=== PATIENT | male | born 1945 | race Two or more races ===

== ENCOUNTER 2017-11-20 17:01 | Inpatient (IN) | payer BC, MEDICARE ==
[~2017-11-20] VITALS: Ht 172.7 cm; Wt 90.3 kg
[2017-11-20] MEDS ORDERED: Sodium Chloride 500ML 500 ML IV ONE (17:15)
[2017-11-20 17:30] LABS: HEMATOCRIT 44.2 % (42.0-52.0); HEMOGLOBIN 14.8 G/DL (14.2-18.0); LYMPHOCYTES % (AUTO) 11.3 % (20.0-45.0); MEAN CORPUSCULAR VOLUME 91 FL (80-99); MONOCYTES % (AUTO) 10.9 % (1.0-10.0); NEUTROPHILS % (AUTO) 76.9 % (45.0-75.0); PLATELET COUNT 114 K/UL (150-450); RED BLOOD COUNT 4.87 M/UL (4.70-6.10); RED CELL DISTRIBUTION WIDTH 12.3 % (11.6-14.8); WHITE BLOOD COUNT 6.1 K/UL (4.8-10.8)
[2017-11-20] MEDS ORDERED: Tylenol #3 tab (300mg/30mg) ORAL ONE (17:30)
[2017-11-20 17:32] VITALS: BP 121/56
[2017-11-20 17:40] LABS: ANION GAP 10 mmol/L (5-15); BLOOD UREA NITROGEN 11 mg/dL (7-18); CALCIUM 8.4 MG/DL (8.5-10.1); CARBON DIOXIDE 24 MMOL/L (21-32); CHLORIDE 100 MMOL/L (98-107); POTASSIUM 4.1 MMOL/L (3.5-5.1); SODIUM 134 MMOL/L (136-145)
[2017-11-20 17:49] LABS: APPEARANCE,URINE SLIGHTLY CLOUDY; BILIRUBIN, URINE NEGATIVE (NEGATIVE); COLOR,URINE AMBER; GLUCOSE, URINE (UA) NEGATIVE (NEGATIVE); KETONES,URINE 3+ (NEGATIVE); LEUKOCYTE ESTERASE ,URINE 2+ (NEGATIVE); NITRITE,URINE NEGATIVE (NEGATIVE); PH,URINE 6.5 (4.5-8.0); PROTEIN,URINE 3+ (NEGATIVE); UROBILINOGEN,URINE 4 MG/DL (0.0-1.0)
[2017-11-20 17:54] LABS: ALANINE AMINOTRANSFERASE 43 U/L (12-78); ALBUMIN 3.3 G/DL (3.4-5.0); ALBUMIN/GLOBULIN RATIO 0.8 (1.0-2.7); ALKALINE PHOSPHATASE 124 U/L (46-116); ASPARTATE AMINO TRANSFERASE 46 U/L (15-37); BILIRUBIN,TOTAL 1.2 MG/DL (0.2-1.0); CREATINE KINASE 325 U/L (26-308)
[2017-11-20 17:55] LABS: BILIRUBIN,DIRECT 0.5 MG/DL (0.0-0.3)
--- NOTE | 2017-11-20 18:09 | Diagnostic Imaging Report ---
Indication: Chest pain Technique: One view of the chest Comparison: none Findings: There is bilateral interstitial edema. No definite effusions. No definite airspace consolidation. The heart is borderline enlarged. Impression: Bilateral interstitial edema
[2017-11-20 18:33] VITALS: BP 121/56
[2017-11-20] MEDS ORDERED: cefTRIAXone 1 GM in D5W 55 ML IVPB ONE (18:45)
[2017-11-20] MEDS ORDERED: Promethazine Plain 6.25mg/5ml ORAL ONE (19:00)
--- NOTE | 2017-11-20 19:08 | Diagnostic Imaging Report ---
EXAM: CT Head Without Intravenous Contrast CLINICAL HISTORY: AMS TECHNIQUE: Axial computed tomography images of the head/brain without intravenous contrast. One or more of the following dose reduction techniques were used: automated exposure control, adjustment of the mA and/or kV according to patient size, use of iterative reconstruction technique. CTDI 70.38 + 0.15. DLP 1312 COMPARISON: No comparison FINDINGS: Brain: No hemorrhage. No edema. Involutional changes with small vessel disease Ventricles: No ventriculomegaly. Bones/joints: No acute fracture. Soft tissues: Unremarkable. Sinuses: No acute sinusitis. Minimal sinus mucosal thickening - debris Mastoid air cells: No mastoid effusion. IMPRESSION: No acute findings. MRI is more sensitive if warranted.
[2017-11-20] MEDS ORDERED: GLIMEPIRIDE4 MG ORAL (19:19)
[2017-11-20] MEDS ORDERED: LANTUS SOL100 UNIT/1 SUBQ (19:19)
[2017-11-20 19:54] VITALS: BP 121/61
--- NOTE | 2017-11-20 20:04 | Emergency Room Report ---
History of Present Illness General Chief Complaint: Altered Level of Consciousness Source: Patient, Family Member, EMS Present Illness HPI Patient is brought in by paramedics with reports of being found confused Patient's family was looking for him over the past several hours Patient had apparently driven to an unknown location and was walking around with confusion Patient himself apparently started driving from [place] was found near this facility Patient himself is somewhat slow to respond to us however with family is more interactive There was no reports of vomiting or diarrhea Daughter reports that the patient had recent cystoscopy to follow-up for bladder cancer patient has had previous surgery and has been in remission Patient was also seen by his physician earlier today and was told of a temperature of 100 however no further intervention Allergies: Coded Allergies: No Known Allergies (Unverified , 11/20/17) Patient History Limited by: medical condition Past Medical History: see triage record Pertinent Family History: unable to obtain Reviewed Nursing Documentation: PMH: Agreed; PSxH: Agreed Nursing Documentation-PMH Hx Diabetes: Yes Hx Cancer: Yes - BLADDER Review of Systems All Other Systems: limited - Other than the ones mentioned in the history of present illness all others are reviewed however they do stay limited due to the patient's mental status Physical Exam Vital Signs Date Time Temp Pulse Resp B/P (MAP) Pulse Ox O2 Delivery O2 Flow Rate FiO2 11/20/17 16:56 102.5 101 22 142/62 97 Room Air 102.6 Sp02 EP Interpretation: reviewed, normal General Appearance: mild distress - Appears confused Head: normocephalic, atraumatic Eyes: bilateral eye PERRL ENT: normal pharynx, uvula midline, dry mucus membranes Neck: supple Respiratory: no respiratory distress, no retraction, crackles - Bilaterally Cardiovascular #1: regular rate, rhythm, no edema, no gallop Gastrointestinal: non tender, soft, no mass Musculoskeletal: other - Patient follows commands no obvious focal deficit Neurologic: responsive - Physically and verbally however does appear more sluggish Skin: normal color, no rash Lymphatic: no adenopathy Medical Decision Making Diagnostic Impression: Primary Impression: Sepsis Additional Impressions: UTI (urinary tract infection) CHF (congestive heart failure) ER Course Patient is a fairly complex patient with multiple differential to consideration including but not limited to cardiac cardiopulmonary , intracranial , infectious , neurological and vascular emergencies Patient CT head does not show any acute disease chest x-ray does show findings consistent with CHF Urine sample also shows too many white blood cells to count with significant UTI Which change in mental status and fever sepsis considered Patient has further hydration and antibiotics given the pulmonary congestion we did not want to provide too much IV fluids and therefore patient did not receive full 30 mL/kg Labs Test 11/20/17 17:01 11/20/17 17:45 White Blood Count 6.1 K/UL (4.8-10.8) Red Blood Count 4.87 M/UL (4.70-6.10) Hemoglobin 14.8 G/DL (14.2-18.0) Hematocrit 44.2 % (42.0-52.0) Mean Corpuscular Volume 91 FL (80-99) Mean Corpuscular Hemoglobin 30.3 PG (27.0-31.0) Mean Corpuscular Hemoglobin Concent 33.4 G/DL (32.0-36.0) Red Cell Distribution Width 12.3 % (11.6-14.8) Platelet Count 114 K/UL (150-450) Mean Platelet Volume 7.8 FL (6.5-10.1) Neutrophils (%) (Auto) 76.9 % (45.0-75.0) Lymphocytes (%) (Auto) 11.3 % (20.0-45.0) Monocytes (%) (Auto) 10.9 % (1.0-10.0) Eosinophils (%) (Auto) 0.0 % (0.0-3.0) Basophils (%) (Auto) 1.0 % (0.0-2.0) Sodium Level 134 MMOL/L (136-145) Potassium Level 4.1 MMOL/L (3.5-5.1) Chloride Level 100 MMOL/L (98-107) Carbon Dioxide Level 24 MMOL/L (21-32) Anion Gap 10 mmol/L (5-15) Blood Urea Nitrogen 11 mg/dL (7-18) Creatinine 1.0 MG/DL (0.55-1.30) Estimat Glomerular Filtration Rate mL/min (>60) Glucose Level 108 MG/DL (74-106) Lactic Acid Level 1.50 mmol/L (0.4-2.0) Calcium Level 8.4 MG/DL (8.5-10.1) Total Bilirubin 1.2 MG/DL (0.2-1.0) Direct Bilirubin 0.5 MG/DL (0.0-0.3) Aspartate Amino Transf (AST/SGOT) 46 U/L (15-37) Alanine Aminotransferase (ALT/SGPT) 43 U/L (12-78) Alkaline Phosphatase 124 U/L (46-116) Total Creatine Kinase 325 U/L (26-308) Creatine Kinase MB 1.0 NG/ML (0.0-3.6) Creatine Kinase MB Relative Index 0.3 Troponin I 0.000 ng/mL (0.000-0.056) Pro-B-Type Natriuretic Peptide 133 pg/mL (0-125) Total Protein 7.4 G/DL (6.4-8.2) Albumin 3.3 G/DL (3.4-5.0) Globulin 4.1 g/dL Albumin/Globulin Ratio 0.8 (1.0-2.7) Lipase 175 U/L (73-393) Urine Color Keila Urine Appearance Slightly cloudy Urine pH 6.5 (4.5-8.0) Urine Specific [place] 1.010 (1.005-1.035) Urine Protein 3+ (NEGATIVE) Urine Glucose (UA) Negative (NEGATIVE) Urine Ketones 3+ (NEGATIVE) Urine Occult Blood 4+ (NEGATIVE) Urine Nitrite Negative (NEGATIVE) Urine Bilirubin Negative (NEGATIVE) Urine Ictotest Negative Urine Urobilinogen 4 MG/DL (0.0-1.0) Urine Leukocyte Esterase 2+ (NEGATIVE) Urine RBC 10-15 /HPF (0 - 0) Urine WBC Tntc /HPF (0 - 0) Urine Squamous Epithelial Cells None /LPF (NONE/OCC) Urine Bacteria Few /HPF (NONE) EKG Diagnostic Results Rate: normal Rhythm: NSR ST Segments: no acute changes Rhythm Strip Diag. Results EP Interpretation: yes Rate: 77 Rhythm: NSR, no PVC's, no ectopy Chest X-Ray Diagnostic Results Chest X-Ray Diagnostic Results : Chest X-Ray Ordered: Yes # of Views/Limited/Complete: 1 View Indication: Chest Pain EP Interpretation: Yes Interpretation: no consolidation, no effusion, no pneumothorax, other - Borderline cardiomegaly, pulmonary congestion Impression: Other - Pulmonary congestion Electronically Signed by: Dudley Rodriguez, DO CT/MRI/US Diagnostic Results CT/MRI/US Diagnostic Results : Impression CT head no acute disease Last Vital Signs Date Time Temp Pulse Resp B/P (MAP) Pulse Ox O2 Delivery O2 Flow Rate FiO2 11/20/17 19:54 99.9 96 20 121/61 97 Room Air 99.9 Status: improved Disposition: ADMITTED INPATIENT Condition: Serious Referrals: NON PHYSICIAN (PCP) Dudley Rodriguez DO Nov 20, 2017 20:04
[2017-11-20] MEDS ORDERED: Miralax 17gm pkt ORAL PRN (20:15)
[2017-11-20] MEDS ORDERED: Albuterol/Ipratropium 3ml neb HHN PRN (20:15)
[2017-11-20] MEDS ORDERED: Morphine Sulfate 4mg/ml Inj IVP PRN (20:15)
[2017-11-20] MEDS ORDERED: LORazepam Inj 2mg/ml 1ml IV PRN (20:15)
[2017-11-20 20:30] VITALS: BP 137/70
[2017-11-20] MEDS: Heparin 5000 units/ml inj SUBQ SCH (21:00)
[2017-11-20] MEDS: NovoLOG Insulin Flexpen SUBQ SCH (21:00)
[2017-11-20] MEDS: Promethazine/Codeine 5ml UD ORAL PRN (21:08)
[2017-11-20] MEDS: Cefepime HCl 2 GM in D5W 110 ML IV SCH (22:19)
[2017-11-20] MEDS: Vancomycin 1 GM in D5W 275 ML IVPB SCH (23:26)
[2017-11-21] VITALS: BP 129/79
[2017-11-21 04:00] VITALS: BP 133/63
[2017-11-21] MEDS: Promethazine/Codeine 5ml UD ORAL PRN ×2 (05:59→19:42)
[2017-11-21] MEDS: NovoLOG Insulin Flexpen SUBQ SCH ×4 (06:05→21:00)
[2017-11-21 07:09] LABS: BASOPHILS % (AUTO) 1.3 % (0.0-2.0); EOSINOPHILS % (AUTO) 0.2 % (0.0-3.0); HEMATOCRIT 44.3 % (42.0-52.0); HEMOGLOBIN 14.9 G/DL (14.2-18.0); LYMPHOCYTES % (AUTO) 24.8 % (20.0-45.0); MEAN CORPUSCULAR VOLUME 90 FL (80-99); MONOCYTES % (AUTO) 16.7 % (1.0-10.0); PLATELET COUNT 117 K/UL (150-450); RED BLOOD COUNT 4.91 M/UL (4.70-6.10); RED CELL DISTRIBUTION WIDTH 12.1 % (11.6-14.8); WHITE BLOOD COUNT 5.3 K/UL (4.8-10.8)
[2017-11-21 07:29] LABS: ANION GAP 8 mmol/L (5-15); BLOOD UREA NITROGEN 14 mg/dL (7-18); CALCIUM 8.5 MG/DL (8.5-10.1); CARBON DIOXIDE 26 MMOL/L (21-32); CHLORIDE 99 MMOL/L (98-107); CREATININE 1.1 MG/DL (0.55-1.30); PHOSPHORUS 3.3 MG/DL (2.5-4.9); POTASSIUM 3.6 MMOL/L (3.5-5.1); SODIUM 133 MMOL/L (136-145)
[2017-11-21 08:00] VITALS: BP 129/72
[2017-11-21] MEDS: Cefepime HCl 2 GM in D5W 110 ML IV SCH (09:23)
[2017-11-21] MEDS: Heparin 5000 units/ml inj SUBQ SCH ×2 (09:34→21:00)
[2017-11-21] MEDS ORDERED: Tubing IV Secondary IV ONE (11:23)
[2017-11-21 12:00] VITALS: BP 103/52
[2017-11-21] MEDS: Vancomycin 1 GM in D5W 275 ML IVPB SCH (12:55)
--- NOTE | 2017-11-21 13:07 | Consultation ---
History of Present Illness General Date patient seen: Nov 21, 2017 Chief Complaint: Altered Level of Consciousness Present Illness HPI 72 year old male with hx of bladder cancer, DM, COPD, chronic cough, CHF was brought in by paramedics with reports of being found confused over the past several hours. Pt was somewhat slow to respond initially. Daughter reports that the patient had recent cystoscopy to follow-up for bladder cancer patient has had previous surgery and has been in remission. Pt had a Temp of 102 in the ER and admitted to telemetry for acute sepsis. Pt is more awake and oriented on my evaluation. Allergies: Coded Allergies: No Known Allergies (Unverified , 11/20/17) Medication History Scheduled Glimepiride* (Glimepiride*), 4 MG ORAL BEFORE BREAKFAST, (Reported) Insulin Glargine (Lantus), 0 SUBQ BEDTIME, (Reported) Patient History Healthcare decision maker Resuscitation status Full Code Advanced Directive on File Past Medical/Surgical History Past Medical/Surgical History: (1) Bladder cancer (2) Diabetes mellitus type II, uncontrolled (3) CHF (congestive heart failure) Review of Systems All Other Systems: negative except mentioned in HPI Physical Exam General Appearance: WD/WN Lines, tubes and drains: peripheral HEENT: normocephalic, atraumatic Neck: non-tender, normal alignment Respiratory/Chest: chest wall non-tender, lungs clear, normal breath sounds Abdomen: normal bowel sounds, non tender Last 24 Hour Vital Signs Date Time Temp Pulse Resp B/P (MAP) Pulse Ox O2 Delivery O2 Flow Rate FiO2 11/21/17 08:19 93 Room Air 11/21/17 08:00 99.6 79 18 129/72 98 Room Air 99.6 11/21/17 04:00 73 11/21/17 04:00 100.1 74 22 133/63 97 Room Air 100.1 11/21/17 00:00 99.4 87 24 129/79 95 Room Air 99.4 11/21/17 00:00 91 11/20/17 20:30 99.8 79 22 137/70 93 Room Air 99.8 11/20/17 20:20 99.9 96 20 121/61 97 Room Air 99.9 11/20/17 20:15 77 11/20/17 19:54 99.9 96 20 121/61 97 Room Air 99.9 11/20/17 19:00 94 Room Air 11/20/17 18:49 94 Nasal Cannula 2.0 11/20/17 18:33 100.2 89 22 121/56 97 Room Air 100.2 11/20/17 18:25 100.2 11/20/17 17:32 102.5 99 22 121/56 97 Room Air 102.5 11/20/17 17:25 102.5 11/20/17 16:56 102.5 101 22 142/62 97 Room Air 102.6 Intake and Output 11/20/17 11/21/17 19:00 07:00 Intake Total 60 ml 577 ml Balance 60 ml 577 ml Intake Oral 60 ml 240 ml IV Total 337 ml # Voids 1 Laboratory Tests Test 11/20/17 17:01 11/20/17 17:45 11/21/17 06:40 White Blood Count 6.1 K/UL (4.8-10.8) 5.3 K/UL (4.8-10.8) Red Blood Count 4.87 M/UL (4.70-6.10) 4.91 M/UL (4.70-6.10) Hemoglobin 14.8 G/DL (14.2-18.0) 14.9 G/DL (14.2-18.0) Hematocrit 44.2 % (42.0-52.0) 44.3 % (42.0-52.0) Mean Corpuscular Volume 91 FL (80-99) 90 FL (80-99) Mean Corpuscular Hemoglobin 30.3 PG (27.0-31.0) 30.4 PG (27.0-31.0) Mean Corpuscular Hemoglobin Concent 33.4 G/DL (32.0-36.0) 33.7 G/DL (32.0-36.0) Red Cell Distribution Width 12.3 % (11.6-14.8) 12.1 % (11.6-14.8) Platelet Count 114 K/UL (150-450) L 117 K/UL (150-450) L Mean Platelet Volume 7.8 FL (6.5-10.1) 8.2 FL (6.5-10.1) Neutrophils (%) (Auto) 76.9 % (45.0-75.0) H 57.0 % (45.0-75.0) Lymphocytes (%) (Auto) 11.3 % (20.0-45.0) L 24.8 % (20.0-45.0) Monocytes (%) (Auto) 10.9 % (1.0-10.0) H 16.7 % (1.0-10.0) H Eosinophils (%) (Auto) 0.0 % (0.0-3.0) 0.2 % (0.0-3.0) Basophils (%) (Auto) 1.0 % (0.0-2.0) 1.3 % (0.0-2.0) Sodium Level 134 MMOL/L (136-145) L 133 MMOL/L (136-145) L Potassium Level 4.1 MMOL/L (3.5-5.1) 3.6 MMOL/L (3.5-5.1) Chloride Level 100 MMOL/L (98-107) 99 MMOL/L (98-107) Carbon Dioxide Level 24 MMOL/L (21-32) 26 MMOL/L (21-32) Anion Gap 10 mmol/L (5-15) 8 mmol/L (5-15) Blood Urea Nitrogen 11 mg/dL (7-18) 14 mg/dL (7-18) Creatinine 1.0 MG/DL (0.55-1.30) 1.1 MG/DL (0.55-1.30) Estimat Glomerular Filtration Rate mL/min (>60) mL/min (>60) Glucose Level 108 MG/DL (74-106) H 91 MG/DL (74-106) Lactic Acid Level 1.50 mmol/L (0.4-2.0) Calcium Level 8.4 MG/DL (8.5-10.1) L 8.5 MG/DL (8.5-10.1) Total Bilirubin 1.2 MG/DL (0.2-1.0) H Direct Bilirubin 0.5 MG/DL (0.0-0.3) H Aspartate Amino Transf (AST/SGOT) 46 U/L (15-37) H Alanine Aminotransferase (ALT/SGPT) 43 U/L (12-78) Alkaline Phosphatase 124 U/L (46-116) H Total Creatine Kinase 325 U/L (26-308) H Creatine Kinase MB 1.0 NG/ML (0.0-3.6) Creatine Kinase MB Relative Index 0.3 Troponin I 0.000 ng/mL (0.000-0.056) Pro-B-Type Natriuretic Peptide 133 pg/mL (0-125) H Total Protein 7.4 G/DL (6.4-8.2) Albumin 3.3 G/DL (3.4-5.0) L 3.0 G/DL (3.4-5.0) L Globulin 4.1 g/dL Albumin/Globulin Ratio 0.8 (1.0-2.7) L Lipase 175 U/L (73-393) Urine Color Keila Urine Appearance Slightly cloudy Urine pH 6.5 (4.5-8.0) Urine Specific [place] 1.010 (1.005-1.035) Urine Protein 3+ (NEGATIVE) H Urine Glucose (UA) Negative (NEGATIVE) Urine Ketones 3+ (NEGATIVE) H Urine Occult Blood 4+ (NEGATIVE) H Urine Nitrite Negative (NEGATIVE) Urine Bilirubin Negative (NEGATIVE) Urine Ictotest Negative Urine Urobilinogen 4 MG/DL (0.0-1.0) H Urine Leukocyte Esterase 2+ (NEGATIVE) H Urine RBC 10-15 /HPF (0 - 0) H Urine WBC Tntc /HPF (0 - 0) H Urine Squamous Epithelial Cells None /LPF (NONE/OCC) Urine Bacteria Few /HPF (NONE) Phosphorus Level 3.3 MG/DL (2.5-4.9) Microbiology Date/Time Source Procedure Growth Status 11/20/17 17:45 Urine,Clean Catch Urine Culture - Preliminary Resulted Height (Feet): 5 Height (Inches): 8.00 Weight (Pounds): 199 Medications Current Medications Medications (Trade) Dose Ordered Sig/Leslie Route PRN Reason Start Time Stop Time Status Last Admin Dose Admin Acetaminophen (Tylenol) 650 mg Q4H PRN ORAL FEVER (temp>100.5F) 11/20/17 20:15 12/20/17 20:14 Albuterol/ Ipratropium (Albuterol/ Ipratropium) 3 ml Q4H PRN HHN Shortness of Breath 11/20/17 20:15 11/25/17 20:14 Cefepime HCl 2 gm/ Dextrose 110 ml @ 220 mls/hr EVERY 12 HOURS IV 11/20/17 22:00 11/27/17 21:59 11/21/17 09:23 Dextrose (Dextrose 50%) 25 ml STAT PRN IV Hypoglycemia 11/20/17 20:15 12/20/17 20:14 Dextrose (Dextrose 50%) 50 ml STAT PRN IV Hypoglycemia 11/20/17 20:15 12/20/17 20:14 Heparin Sodium (Porcine) (Heparin 5000 units/ml) 5,000 units EVERY 12 HOURS SUBQ 11/20/17 21:00 12/20/17 20:59 11/21/17 09:34 Insulin Aspart (NovoLOG) BEFORE MEALS AND HS SUBQ 11/20/17 21:00 12/20/17 20:59 Lorazepam (Ativan 2mg/ml 1ml) 2 mg Q2H PRN IV For Anxiety 11/20/17 20:15 11/27/17 20:14 Morphine Sulfate (Morphine Sulfate) 4 mg Q4H PRN IVP Severe Pain (Pain Scale 7-10) 11/20/17 20:15 11/27/17 20:14 Ondansetron HCl (Zofran) 4 mg Q6H PRN IVP Nausea & Vomiting 11/20/17 20:15 12/20/17 20:14 Polyethylene Glycol (Miralax) 17 gm DAILYPRN PRN ORAL Constipation 11/20/17 20:15 12/20/17 20:14 Promethazine HCl/ Codeine (Phenergan with Codeine) 5 ml Q4H PRN ORAL For Cough 11/20/17 20:15 12/20/17 20:14 11/21/17 05:59 Sodium Chloride 1,000 ml @ 50 mls/hr Q20H IV 11/20/17 20:30 12/20/17 20:29 11/20/17 21:14 Vancomycin HCl (Vanco rx to dose) 1 ea DAILY PRN MISC per RX protocol 11/20/17 20:30 12/20/17 20:29 Vancomycin HCl 1 gm/Dextrose 275 ml @ 183.3 mls/ hr Q12HR@1100,2300 IVPB 11/20/17 23:00 11/25/17 22:59 11/21/17 12:55 Assessment/Plan Problem List: (1) Sepsis ICD Codes: A41.9 - Sepsis, unspecified organism SNOMED: 21138973 (2) Altered mental status ICD Codes: R41.82 - Altered mental status, unspecified SNOMED: 303352443 (3) Bronchitis ICD Codes: J40 - Bronchitis, not specified as acute or chronic SNOMED: 22784342 (4) Bladder cancer ICD Codes: C67.9 - Malignant neoplasm of bladder, unspecified SNOMED: 187085575 (5) Diabetes mellitus type II, uncontrolled ICD Codes: E11.65 - Type 2 diabetes mellitus with hyperglycemia SNOMED: 21033699, 257352411 Assessment/Plan iv abx respiratory treatment antitussives check sputum and other cultures sliding scale, diabetic diet dvt prophylaxis Sabine Mendez MD Nov 21, 2017 13:07
--- NOTE | 2017-11-21 13:55 | Consultation ---
History of Present Illness General Date patient seen: Nov 21, 2017 Time patient seen: 12:58 Chief Complaint: Altered Level of Consciousness Reason for Consultation: CHF Present Illness HPI Patient came in with fever and confusion. CXR with bilateral interstitial edema. CT brain negative. Troponin normal, UA with positive LE/nitrites concerning for urosepsis. Hx of CHF. Allergies: Coded Allergies: No Known Allergies (Unverified , 11/20/17) Medication History Scheduled Glimepiride* (Glimepiride*), 4 MG ORAL BEFORE BREAKFAST, (Reported) Insulin Glargine (Lantus), 0 SUBQ BEDTIME, (Reported) Patient History Healthcare decision maker Resuscitation status Full Code Advanced Directive on File Review of Systems Constitutional: Reports: fever Eye: Reports: no symptoms ENT: Reports: no symptoms Respiratory: Reports: cough Cardiovascular: Reports: no symptoms Gastrointestinal: Reports: no symptoms Genitourinary: Reports: no symptoms Musculoskeletal: Reports: no symptoms Skin: Reports: no symptoms Neurological: Reports: focal weakness Endocrine: Reports: no symptoms Hematologic/Lymphatic: Reports: no symptoms Physical Exam General Appearance: no apparent distress Lines, tubes and drains: peripheral HEENT: normocephalic Neck: non-tender Respiratory/Chest: chest wall non-tender Cardiovascular/Chest: normal peripheral pulses Abdomen: non tender Extremities: normal range of motion Neurologic: no motor/sensory deficits Last 24 Hour Vital Signs Date Time Temp Pulse Resp B/P (MAP) Pulse Ox O2 Delivery O2 Flow Rate FiO2 11/21/17 12:00 65 11/21/17 08:19 93 Room Air 11/21/17 08:00 86 11/21/17 08:00 99.6 79 18 129/72 98 Room Air 99.6 11/21/17 04:00 73 11/21/17 04:00 100.1 74 22 133/63 97 Room Air 100.1 11/21/17 00:00 99.4 87 24 129/79 95 Room Air 99.4 11/21/17 00:00 91 11/20/17 20:30 99.8 79 22 137/70 93 Room Air 99.8 11/20/17 20:20 99.9 96 20 121/61 97 Room Air 99.9 11/20/17 20:15 77 11/20/17 19:54 99.9 96 20 121/61 97 Room Air 99.9 6/22/18 19:00 94 Room Air 11/20/17 18:49 94 Nasal Cannula 2.0 11/20/17 18:33 100.2 89 22 121/56 97 Room Air 100.2 11/20/17 18:25 100.2 11/20/17 17:32 102.5 99 22 121/56 97 Room Air 102.5 11/20/17 17:25 102.5 11/20/17 16:56 102.5 101 22 142/62 97 Room Air 102.6 Intake and Output 11/20/17 11/21/17 19:00 07:00 Intake Total 60 ml 577 ml Balance 60 ml 577 ml Intake Oral 60 ml 240 ml IV Total 337 ml # Voids 1 Laboratory Tests Test 11/20/17 17:01 11/20/17 17:45 11/21/17 06:40 White Blood Count 6.1 K/UL (4.8-10.8) 5.3 K/UL (4.8-10.8) Red Blood Count 4.87 M/UL (4.70-6.10) 4.91 M/UL (4.70-6.10) Hemoglobin 14.8 G/DL (14.2-18.0) 14.9 G/DL (14.2-18.0) Hematocrit 44.2 % (42.0-52.0) 44.3 % (42.0-52.0) Mean Corpuscular Volume 91 FL (80-99) 90 FL (80-99) Mean Corpuscular Hemoglobin 30.3 PG (27.0-31.0) 30.4 PG (27.0-31.0) Mean Corpuscular Hemoglobin Concent 33.4 G/DL (32.0-36.0) 33.7 G/DL (32.0-36.0) Red Cell Distribution Width 12.3 % (11.6-14.8) 12.1 % (11.6-14.8) Platelet Count 114 K/UL (150-450) L 117 K/UL (150-450) L Mean Platelet Volume 7.8 FL (6.5-10.1) 8.2 FL (6.5-10.1) Neutrophils (%) (Auto) 76.9 % (45.0-75.0) H 57.0 % (45.0-75.0) Lymphocytes (%) (Auto) 11.3 % (20.0-45.0) L 24.8 % (20.0-45.0) Monocytes (%) (Auto) 10.9 % (1.0-10.0) H 16.7 % (1.0-10.0) H Eosinophils (%) (Auto) 0.0 % (0.0-3.0) 0.2 % (0.0-3.0) Basophils (%) (Auto) 1.0 % (0.0-2.0) 1.3 % (0.0-2.0) Sodium Level 134 MMOL/L (136-145) L 133 MMOL/L (136-145) L Potassium Level 4.1 MMOL/L (3.5-5.1) 3.6 MMOL/L (3.5-5.1) Chloride Level 100 MMOL/L (98-107) 99 MMOL/L (98-107) Carbon Dioxide Level 24 MMOL/L (21-32) 26 MMOL/L (21-32) Anion Gap 10 mmol/L (5-15) 8 mmol/L (5-15) Blood Urea Nitrogen 11 mg/dL (7-18) 14 mg/dL (7-18) Creatinine 1.0 MG/DL (0.55-1.30) 1.1 MG/DL (0.55-1.30) Estimat Glomerular Filtration Rate mL/min (>60) mL/min (>60) Glucose Level 108 MG/DL (74-106) H 91 MG/DL (74-106) Lactic Acid Level 1.50 mmol/L (0.4-2.0) Calcium Level 8.4 MG/DL (8.5-10.1) L 8.5 MG/DL (8.5-10.1) Total Bilirubin 1.2 MG/DL (0.2-1.0) H Direct Bilirubin 0.5 MG/DL (0.0-0.3) H Aspartate Amino Transf (AST/SGOT) 46 U/L (15-37) H Alanine Aminotransferase (ALT/SGPT) 43 U/L (12-78) Alkaline Phosphatase 124 U/L (46-116) H Total Creatine Kinase 325 U/L (26-308) H Creatine Kinase MB 1.0 NG/ML (0.0-3.6) Creatine Kinase MB Relative Index 0.3 Troponin I 0.000 ng/mL (0.000-0.056) Pro-B-Type Natriuretic Peptide 133 pg/mL (0-125) H Total Protein 7.4 G/DL (6.4-8.2) Albumin 3.3 G/DL (3.4-5.0) L 3.0 G/DL (3.4-5.0) L Globulin 4.1 g/dL Albumin/Globulin Ratio 0.8 (1.0-2.7) L Lipase 175 U/L (73-393) Urine Color [place]ila Urine Appearance Slightly cloudy Urine pH 6.5 (4.5-8.0) Urine Specific [place] 1.010 (1.005-1.035) Urine Protein 3+ (NEGATIVE) H Urine Glucose (UA) Negative (NEGATIVE) Urine Ketones 3+ (NEGATIVE) H Urine Occult Blood 4+ (NEGATIVE) H Urine Nitrite Negative (NEGATIVE) Urine Bilirubin Negative (NEGATIVE) Urine Ictotest Negative Urine Urobilinogen 4 MG/DL (0.0-1.0) H Urine Leukocyte Esterase 2+ (NEGATIVE) H Urine RBC 10-15 /HPF (0 - 0) H Urine WBC Tntc /HPF (0 - 0) H Urine Squamous Epithelial Cells None /LPF (NONE/OCC) Urine Bacteria Few /HPF (NONE) Phosphorus Level 3.3 MG/DL (2.5-4.9) Microbiology Date/Time Source Procedure Growth Status 11/20/17 17:45 Urine,Clean Catch Urine Culture - Preliminary Resulted Height (Feet): 5 Height (Inches): 8.00 Weight (Pounds): 199 Medications Current Medications Medications (Trade) Dose Ordered Sig/Leslie Route PRN Reason Start Time Stop Time Status Last Admin Dose Admin Acetaminophen (Tylenol) 650 mg Q4H PRN ORAL FEVER (temp>100.5F) 11/20/17 20:15 12/20/17 20:14 Albuterol/ Ipratropium (Albuterol/ Ipratropium) 3 ml Q4H PRN HHN Shortness of Breath 11/20/17 20:15 11/25/17 20:14 Cefepime HCl 2 gm/ Dextrose 110 ml @ 220 mls/hr EVERY 12 HOURS IV 11/20/17 22:00 11/27/17 21:59 11/21/17 09:23 Dextrose (Dextrose 50%) 25 ml STAT PRN IV Hypoglycemia 11/20/17 20:15 12/20/17 20:14 Dextrose (Dextrose 50%) 50 ml STAT PRN IV Hypoglycemia 11/20/17 20:15 12/20/17 20:14 Heparin Sodium (Porcine) (Heparin 5000 units/ml) 5,000 units EVERY 12 HOURS SUBQ 11/20/17 21:00 12/20/17 20:59 11/21/17 09:34 Insulin Aspart (NovoLOG) BEFORE MEALS AND HS SUBQ 11/20/17 21:00 12/20/17 20:59 Lorazepam (Ativan 2mg/ml 1ml) 2 mg Q2H PRN IV For Anxiety 11/20/17 20:15 11/27/17 20:14 Morphine Sulfate (Morphine Sulfate) 4 mg Q4H PRN IVP Severe Pain (Pain Scale 7-10) 11/20/17 20:15 11/27/17 20:14 Ondansetron HCl (Zofran) 4 mg Q6H PRN IVP Nausea & Vomiting 11/20/17 20:15 12/20/17 20:14 Polyethylene Glycol (Miralax) 17 gm DAILYPRN PRN ORAL Constipation 11/20/17 20:15 12/20/17 20:14 Promethazine HCl/ Codeine (Phenergan with Codeine) 5 ml Q4H PRN ORAL For Cough 11/20/17 20:15 12/20/17 20:14 11/21/17 05:59 Sodium Chloride 1,000 ml @ 50 mls/hr Q20H IV 11/20/17 20:30 12/20/17 20:29 11/20/17 21:14 Vancomycin HCl (Vanco rx to dose) 1 ea DAILY PRN MISC per RX protocol 11/20/17 20:30 12/20/17 20:29 Vancomycin HCl 1 gm/Dextrose 275 ml @ 183.3 mls/ hr Q12HR@1100,2300 IVPB 11/20/17 23:00 11/25/17 22:59 11/21/17 12:55 Assessment/Plan Status: stable Assessment/Plan IV abx for urosepsis CXR noted, no signs of distress of heart failure Troponin negative Check 2D echo to evaluate LV function Roger Westbrook M.D. Nov 21, 2017 13:55
--- NOTE | 2017-11-21 14:54 | Consultation ---
Consult Note Consult Note # [id number] Sin Farias MD Nov 21, 2017 14:54
[2017-11-21 16:00] VITALS: BP 123/65
--- NOTE | 2017-11-21 16:51 | History & Physical ---
History and Physical History & Physicial Dictated for Int Med-Dr Sandoval no. [id number]. Kana Cisse MD Nov 21, 2017 16:51
--- NOTE | 2017-11-21 17:45 | Consultation ---
DATE OF CONSULTATION: 11/21/2017 INFECTIOUS DISEASES CONSULTATION REQUESTING PHYSICIAN: 1. Arnulfo Sandoval M.D. 2. Sabine Mendez M.D. REASON FOR CONSULTATION: Evaluation of the patient for fever, sepsis, and antibiotic management. HISTORY OF PRESENT ILLNESS: The patient is a 72-year-old male with multiple medical problems as listed below who was brought to the hospital for confusion. Apparently, the patient on the street called the girlfriend and the patient could not locate his car. He does not remember why he was being outside. Family called 911. The patient was brought to the emergency room. The patient was found to have low-grade fever. After the patient was found to be febrile, Infectious Diseases consultation has been requested for further evaluation of the patient's antibiotic management. The patient's mental status has improved. PAST MEDICAL HISTORY: 1. History of bladder cancer, status post surgery x3, first time 10 years ago and the patient has also surgery? cystoscopy in June and July 2017. 2. History of diabetes. 3. History of right knee replacement. MEDICATIONS: Vancomycin and cefepime. ALLERGIES: No known drug allergies. SOCIAL HISTORY: The patient is a smoker. FAMILY HISTORY: Noncontributing. REVIEW OF SYSTEMS: HEENT: No recent change in vision or hearing. No headaches. PULMONARY: The patient has cough that has improved recently. CARDIOVASCULAR: No chest pain. GASTROINTESTINAL/ABDOMEN: No nausea or vomiting. No abdominal pain. GENITOURINARY: No dysuria. MUSCULOSKELETAL: No pain in extremity. NEUROLOGIC: As mentioned above. PHYSICAL EXAMINATION: VITAL SIGNS: Temperature 99.6 degrees, pulse 86, respiratory rate 18, and blood pressure 110/72. HEENT: No pale conjunctivae. No icterus. NECK: No lymphadenopathy. CHEST: Clear. HEART: S1 and S2. ABDOMEN: Soft and nontender. EXTREMITIES: No cyanosis at this time. NEUROLOGIC: Awake and alert. LABORATORY AND DIAGNOSTIC DATA: White blood cells 5.3, hemoglobin 14, platelets 117,000. UA shows too numerous to count white blood cells. UA showed 10 to 15 red blood cells. BUN and creatinine normal. AST 46, ALT 43, and alkaline phosphatase 124. Lipase normal. Lactic acid normal. Urine culture pending. Blood culture pending. Head CT, no acute changes. Chest x-ray, bilateral interstitial edema. ASSESSMENT: The patient is a 72-year-old male with: 1. Status post altered level of consciousness/confusion that improved overnight. 2. No evidence of meningitis/encephalitis. 3. Probably chronic obstructive pulmonary disease exacerbation versus community-acquired pneumonia. The patient's cough has increased recently in the last few days. 4. Pyuria. No urinary tract symptoms, however, need to rule out urinary tract infection. 5. Normal lactic acid. 6. Normal white blood cells. 7. Fever, improving. 8. Rule out bacteremia. PLAN: 1. We will change antibiotics to Levaquin for possible urinary tract infection and pneumonia. 2. Hold cefepime and vancomycin. 3. Monitor CBC. 4. Monitor BMP. 5. Monitor cultures (blood, urine). 6. We will send sputum culture. 7. Monitor vital signs. 8. Monitor chest x-ray. 9. Based on the patient's clinical course and labs, we will do further recommendations. Thank you, Dr. Sandoval and Dr. Mendez for allowing me to participate in the care of this patient. I will follow the patient with you during this hospitalization. Hannah Walker JOB#: [id number] CC:
--- NOTE | 2017-11-21 18:30 | History and Physical Report ---
DATE OF ADMISSION: 11/20/2017 CHIEF COMPLAINT: The patient is a 72-year-old white male, who is admitted with a chief complaint of altered mental status. HISTORY OF PRESENT ILLNESS: The patient has a history of bladder cancer. The patient is status post resection three times. The most recent was in July of 2017. According to the patient's family, the patient was missing last evening, 11/20/2017. The patient apparently got lost trying to drive back to [place]. The patient was able to call 911 and give the directions from the street signs. The patient presented to [facility] emergency room. The patient was somewhat confused. The patient was admitted for altered mental status to rule out recurrence of cancer versus urinary tract infection. PAST MEDICAL HISTORY: Significant for, 1. Type 2 diabetes. 2. Bladder cancer, which was diagnosed in 2009. PAST SURGICAL HISTORY: Significant for, 1. Bladder cancer resection, #1 in 2009, #2 in June of 2017, and #3 in July of 2017. 2. Right knee replacement. CURRENT MEDICATIONS: 1. Glimepiride 4 mg p.o. daily. 2. Tresiba 25 units subcutaneously every morning. ALLERGIES: No known drug allergies. SOCIAL HISTORY: The patient is and lives with his adult daughter. The patient admits to tobacco use of one-half pack per day. The patient admits to alcohol use occasionally. The patient denies drug abuse. REVIEW OF SYSTEMS: CONSTITUTIONAL: The patient denies weight loss or gain. The patient denies fevers or chills. HEENT: The patient denies ear or throat pain. The patient denies headache. CARDIOVASCULAR: The patient denies palpitations or chest pain. CHEST: The patient denies wheeze or shortness of breath. ABDOMINAL: The patient denies nausea, vomiting, diarrhea, or constipation. GENITOURINARY: The patient denies dysuria or increased frequency of urination. NEUROMUSCULAR: The patient denies seizures or generalized weakness. PHYSICAL EXAMINATION: VITAL SIGNS: Temperature 99.8, respirations 22, pulse 79, and blood pressure 137/70. GENERAL: The patient is a well-developed and well-nourished white male, in no apparent distress. HEENT: Eyes, pupils equal and responsive to light and accommodation. Extraocular movements are intact. NECK: Supple without lymphadenopathy. CHEST: Lungs are clear to auscultation bilaterally without wheezes or rales. CARDIOVASCULAR: Regular rhythm and rate. S1 and S2 are normal without murmurs, rubs, or gallops. ABDOMEN: Soft, nontender, and nondistended. Positive bowel sounds. No evidence of hepatosplenomegaly. Currently, no rebound or guarding noted. EXTREMITIES: Negative for clubbing, cyanosis, or edema. RECTAL/GENITAL: Refused. NEUROLOGIC: Cranial nerves II through XII are grossly intact without focal deficits. Motor strength is 5/5 bilaterally. Deep tendon reflexes are 2+ plantar. LABORATORY STUDIES: WBC 6.1, hemoglobin 14.8, hematocrit 44.2, and platelets 140,000. Sodium 134, potassium 4.1, chloride 100, CO2 24, BUN 11, creatinine 1.0, and glucose 108. Urinalysis showed 3+ protein, 3+ ketones, 4+ occult blood, and 2+ leukocyte esterase with 10 to 15 rbc's, and wbc's too numerous to count. ASSESSMENT: This is a 72-year-old white male. 1. Altered mental status. 2. Urinary tract infection. 3. Diabetes type 2. 4. History of bladder cancer. TREATMENT: 1. Urinary tract infection. The patient has been started empirically on intravenous vancomycin and Levaquin. The patient received cefepime and ceftriaxone in the emergency room. Await urine cultures. 2. Diabetes type 2. The patient has been placed on a NovoLog sliding scale. 3. History of bladder cancer. Urology consultation has been obtained with Dr. Lockett. Kana Cisse M.D. DR: MARCIA JOB#: [id number] CC:
[2017-11-21 20:00] VITALS: BP 125/65
[2017-11-22] VITALS: BP 122/73
[2017-11-22 04:00] VITALS: BP 119/70
[2017-11-22] MEDS: NovoLOG Insulin Flexpen SUBQ SCH ×4 (06:35→21:29)
[2017-11-22 08:00] VITALS: BP 126/63
--- NOTE | 2017-11-22 09:02 | Diagnostic Imaging Report ---
EXAM: XR Chest, 1 View CLINICAL HISTORY: DYSPNEA TECHNIQUE: Frontal view of the chest. COMPARISON: Chest x-ray dated 11/20/17. FINDINGS: Lungs: Increased interstitial markings. The lungs are otherwise clear without focal consolidation. Pleural space: Unremarkable. No pneumothorax. Heart: Unremarkable. No cardiomegaly. Mediastinum: Unremarkable. Bones/joints: Unremarkable. IMPRESSION: Increased interstitial markings. This may be related to mild pulmonary vascular congestion, interstitial edema, or interstitial pneumonitis. This appears mildly improved compared to the prior chest x-ray.
[2017-11-22] MEDS: Heparin 5000 units/ml inj SUBQ SCH ×2 (09:06→21:00)
[2017-11-22 10:08] LABS: HEMATOCRIT 45.4 % (42.0-52.0); HEMOGLOBIN 15.1 G/DL (14.2-18.0); MEAN CORPUSCULAR VOLUME 90 FL (80-99); PLATELET COUNT 99 K/UL (150-450); RED BLOOD COUNT 5.04 M/UL (4.70-6.10)
[2017-11-22 10:36] LABS: ALANINE AMINOTRANSFERASE 37 U/L (12-78); ALBUMIN 2.7 G/DL (3.4-5.0); ALBUMIN/GLOBULIN RATIO 0.7 (1.0-2.7); ALKALINE PHOSPHATASE 101 U/L (46-116); ANION GAP 4 mmol/L (5-15); ASPARTATE AMINO TRANSFERASE 38 U/L (15-37); BILIRUBIN,TOTAL 0.6 MG/DL (0.2-1.0); BLOOD UREA NITROGEN 17 mg/dL (7-18); CARBON DIOXIDE 29 MMOL/L (21-32); CHLORIDE 104 MMOL/L (98-107); POTASSIUM 4.2 MMOL/L (3.5-5.1); SODIUM 137 MMOL/L (136-145)
--- NOTE | 2017-11-22 10:51 | Cardiology Progress Note ---
Assessment/Plan Status: stable Assessment/Plan Continue treatment for UTI Echo reviewed, normal function, no endocarditis no acute CVA Dispo planning Subjective Cardiovascular: Reports: no symptoms Respiratory: Reports: no symptoms Gastrointestinal/Abdominal: Reports: no symptoms Genitourinary: Reports: no symptoms Subjective No acute events Patient alert/oriented Afebrile, vitals stable Echo normal Objective Last 24 Hour Vital Signs Date Time Temp Pulse Resp B/P (MAP) Pulse Ox O2 Delivery O2 Flow Rate FiO2 11/22/17 08:05 74 18 Room Air 21 11/22/17 08:05 94 Room Air 21 11/22/17 04:00 68 11/22/17 04:00 96.8 72 18 119/70 94 Room Air 96.8 11/22/17 00:00 98.2 66 17 122/73 95 Room Air 98.2 11/22/17 00:00 62 11/21/17 20:00 62 11/21/17 20:00 98.2 62 22 125/65 98 Room Air 98.2 11/21/17 19:58 95 Room Air 21 11/21/17 16:00 99.1 68 18 123/65 92 Room Air 99.1 11/21/17 16:00 66 11/21/17 12:00 65 11/21/17 12:00 98.4 72 18 103/52 95 Room Air 98.4 General Appearance: no apparent distress EENT: PERRL/EOMI Neck: non-tender Rhythm: NSR Cardiovascular: normal peripheral pulses Respiratory/Chest: chest wall non-tender Abdomen: normal bowel sounds Extremities: non-tender Neurologic: human resources receptionist II-XII grossly normal Intake and Output 11/21/17 11/22/17 19:00 07:00 Intake Total 780 ml 450 ml Balance 780 ml 450 ml Intake Oral 730 ml IV Total 50 ml 450 ml # Voids 4 1 Laboratory Tests Test 11/22/17 09:45 White Blood Count 4.0 K/UL (4.8-10.8) L Red Blood Count 5.04 M/UL (4.70-6.10) Hemoglobin 15.1 G/DL (14.2-18.0) Hematocrit 45.4 % (42.0-52.0) Mean Corpuscular Volume 90 FL (80-99) Mean Corpuscular Hemoglobin 29.9 PG (27.0-31.0) Mean Corpuscular Hemoglobin Concent 33.2 G/DL (32.0-36.0) Red Cell Distribution Width 12.0 % (11.6-14.8) Platelet Count 99 K/UL (150-450) L Mean Platelet Volume 7.9 FL (6.5-10.1) Neutrophils (%) (Auto) % (45.0-75.0) Lymphocytes (%) (Auto) % (20.0-45.0) Monocytes (%) (Auto) % (1.0-10.0) Eosinophils (%) (Auto) % (0.0-3.0) Basophils (%) (Auto) % (0.0-2.0) Neutrophils % (Manual) Pending Lymphocytes % (Manual) Pending Platelet Estimate Pending Platelet Morphology Pending Sodium Level 137 MMOL/L (136-145) Potassium Level 4.2 MMOL/L (3.5-5.1) Chloride Level 104 MMOL/L (98-107) Carbon Dioxide Level 29 MMOL/L (21-32) Anion Gap 4 mmol/L (5-15) L Blood Urea Nitrogen 17 mg/dL (7-18) Creatinine 1.0 MG/DL (0.55-1.30) Estimat Glomerular Filtration Rate mL/min (>60) Glucose Level 271 MG/DL (74-106) #H Calcium Level 8.0 MG/DL (8.5-10.1) L Total Bilirubin 0.6 MG/DL (0.2-1.0) Aspartate Amino Transf (AST/SGOT) 38 U/L (15-37) H Alanine Aminotransferase (ALT/SGPT) 37 U/L (12-78) Alkaline Phosphatase 101 U/L (46-116) Pro-B-Type Natriuretic Peptide 54 pg/mL (0-125) Total Protein 6.5 G/DL (6.4-8.2) Albumin 2.7 G/DL (3.4-5.0) L Globulin 3.8 g/dL Albumin/Globulin Ratio 0.7 (1.0-2.7) L Vancomycin Level Trough 4.3 ug/mL (5.0-12.0) L Microbiology Date/Time Source Procedure Growth Status 11/20/17 17:16 Blood Blood Culture - Preliminary NO GROWTH AFTER 24 HOURS Resulted 11/20/17 17:01 Blood Blood Culture - Preliminary NO GROWTH AFTER 24 HOURS Resulted 11/20/17 17:45 Urine,Clean Catch Urine Culture - Preliminary Mixed Gram Positive Organism Resulted Roger Westbrook M.D. Nov 22, 2017 10:51
[2017-11-22] MEDS ORDERED: 1/2 NS 1000ml IV ONE (11:01)
[2017-11-22] MEDS ORDERED: Tubing IV Secondary IV ONE (11:01)
[2017-11-22 12:00] VITALS: BP 135/76
--- NOTE | 2017-11-22 14:04 | Pulmonology Progress Note ---
Assessment/Plan Problems: (1) Sepsis (2) CHF (congestive heart failure) (3) UTI (urinary tract infection) Assessment/Plan improving respiratory treatment iv abx check cultures med/surg Subjective ROS Limited/Unobtainable: No Constitutional: Reports: no symptoms Respiratory: Reports: no symptoms Allergies: Coded Allergies: No Known Allergies (Unverified , 11/20/17) Objective Last 24 Hour Vital Signs Date Time Temp Pulse Resp B/P (MAP) Pulse Ox O2 Delivery O2 Flow Rate FiO2 11/22/17 12:00 98.0 62 20 135/76 97 Room Air 98.0 11/22/17 12:00 74 11/22/17 08:05 74 18 Room Air 21 11/22/17 08:05 94 Room Air 21 11/22/17 08:00 97.7 63 20 126/63 95 Room Air 97.7 11/22/17 08:00 69 11/22/17 04:00 68 11/22/17 04:00 96.8 72 18 119/70 94 Room Air 96.8 11/22/17 00:00 98.2 66 17 122/73 95 Room Air 98.2 11/22/17 00:00 62 11/21/17 20:00 62 11/21/17 20:00 98.2 62 22 125/65 98 Room Air 98.2 11/21/17 19:58 95 Room Air 21 11/21/17 16:00 99.1 68 18 123/65 92 Room Air 99.1 11/21/17 16:00 66 Intake and Output 11/21/17 11/22/17 19:00 07:00 Intake Total 780 ml 450 ml Balance 780 ml 450 ml Intake Oral 730 ml IV Total 50 ml 450 ml # Voids 4 1 General Appearance: WD/WN HEENT: normocephalic, atraumatic Respiratory/Chest: chest wall non-tender, lungs clear Cardiovascular: normal peripheral pulses, normal rate Abdomen: normal bowel sounds, soft, non tender, no organomegaly Microbiology Date/Time Source Procedure Growth Status 11/20/17 17:16 Blood Blood Culture - Preliminary NO GROWTH AFTER 24 HOURS Resulted 11/20/17 17:01 Blood Blood Culture - Preliminary NO GROWTH AFTER 24 HOURS Resulted 11/20/17 17:45 Urine,Clean Catch Urine Culture - Preliminary Mixed Gram Positive Organism Resulted Laboratory Tests 11/22/17 09:45: White Blood Count 4.0L, Red Blood Count 5.04, Hemoglobin 15.1, Hematocrit 45.4, Mean Corpuscular Volume 90, Mean Corpuscular Hemoglobin 29.9, Mean Corpuscular Hemoglobin Concent 33.2, Red Cell Distribution Width 12.0, Platelet Count 99L, Mean Platelet Volume 7.9, Neutrophils (%) (Auto) , Lymphocytes (%) (Auto) , Monocytes (%) (Auto) , Eosinophils (%) (Auto) , Basophils (%) (Auto) , Differential Total Cells Counted 100, Neutrophils % (Manual) 56, Lymphocytes % ( Manual) 32, Monocytes % (Manual) 11H, Eosinophils % (Manual) 1, Basophils % ( Manual) 0, Band Neutrophils 0, Platelet Estimate DecreasedL, Platelet Morphology Normal, Red Blood Cell Morphology Normal, Sodium Level 137, Potassium Level 4.2, Chloride Level 104, Carbon Dioxide Level 29, Anion Gap 4L, Blood Urea Nitrogen 17, Creatinine 1.0, Estimat Glomerular Filtration Rate , Glucose Level 271#H, Calcium Level 8.0L, Total Bilirubin 0.6, Aspartate Amino Transf (AST/SGOT) 38H, Alanine Aminotransferase (ALT/SGPT) 37, Alkaline Phosphatase 101, Pro-B-Type Natriuretic Peptide 54, Total Protein 6.5, Albumin 2.7L, Globulin 3.8, Albumin/Globulin Ratio 0.7L, Vancomycin Level Trough 4.3L Current Medications Medications (Trade) Dose Ordered Sig/Leslie Route PRN Reason Start Time Stop Time Status Last Admin Dose Admin Acetaminophen (Tylenol) 650 mg Q4H PRN ORAL FEVER (temp>100.5F) 11/20/17 20:15 12/20/17 20:14 Albuterol/ Ipratropium (Albuterol/ Ipratropium) 3 ml Q4H PRN HHN Shortness of Breath 11/20/17 20:15 11/25/17 20:14 Dextrose (Dextrose 50%) 25 ml STAT PRN IV Hypoglycemia 11/20/17 20:15 12/20/17 20:14 Dextrose (Dextrose 50%) 50 ml STAT PRN IV Hypoglycemia 11/20/17 20:15 12/20/17 20:14 Heparin Sodium (Porcine) (Heparin 5000 units/ml) 5,000 units EVERY 12 HOURS SUBQ 11/20/17 21:00 12/20/17 20:59 11/22/17 09:06 Insulin Aspart (NovoLOG) BEFORE MEALS AND HS SUBQ 11/20/17 21:00 12/20/17 20:59 11/22/17 12:03 Levofloxacin 150 ml @ 100 mls/hr Q24H IVPB 11/21/17 16:00 11/28/17 15:59 11/21/17 17:36 Lorazepam (Ativan 2mg/ml 1ml) 2 mg Q2H PRN IV For Anxiety 11/20/17 20:15 11/27/17 20:14 Morphine Sulfate (Morphine Sulfate) 4 mg Q4H PRN IVP Severe Pain (Pain Scale 7-10) 11/20/17 20:15 11/27/17 20:14 Ondansetron HCl (Zofran) 4 mg Q6H PRN IVP Nausea & Vomiting 11/20/17 20:15 12/20/17 20:14 Polyethylene Glycol (Miralax) 17 gm DAILYPRN PRN ORAL Constipation 11/20/17 20:15 12/20/17 20:14 Promethazine HCl/ Codeine (Phenergan with Codeine) 5 ml Q4H PRN ORAL For Cough 11/20/17 20:15 12/20/17 20:14 11/21/17 19:42 Sodium Chloride 1,000 ml @ 50 mls/hr Q20H IV 11/20/17 20:30 12/20/17 20:29 11/22/17 13:30 Sabine Mendez MD Nov 22, 2017 14:04
[2017-11-22 16:00] VITALS: BP 135/70
[2017-11-22] MEDS ORDERED: LORazepam Inj 2mg/ml 1ml IV PRN (16:00)
[2017-11-22] MEDS ORDERED: Miralax 17gm pkt ORAL PRN (16:00)
[2017-11-22] MEDS ORDERED: Albuterol/Ipratropium 3ml neb HHN PRN (16:00)
[2017-11-22] MEDS ORDERED: Morphine Sulfate 4mg/ml Inj IVP PRN (16:15)
--- NOTE | 2017-11-22 18:58 | Internal Med Progress Note ---
Subjective Date of Service: Nov 22, 2017 Physician Name Kana Cisse Attending Physician Arnulfo Sandoval MD Current Medications Medications (Trade) Dose Ordered Sig/Leslie Route PRN Reason Start Time Stop Time Status Last Admin Dose Admin Acetaminophen (Tylenol) 650 mg Q4H PRN ORAL FEVER (temp>100.5F) 11/22/17 16:00 12/20/17 15:59 Albuterol/ Ipratropium (Albuterol/ Ipratropium) 3 ml Q4H PRN HHN Shortness of Breath 11/22/17 16:00 11/25/17 15:59 Dextrose (Dextrose 50%) 25 ml STAT PRN IV Hypoglycemia 11/22/17 16:00 12/20/17 15:59 Dextrose (Dextrose 50%) 50 ml STAT PRN IV Hypoglycemia 11/22/17 16:00 12/20/17 15:59 Heparin Sodium (Porcine) (Heparin 5000 units/ml) 5,000 units EVERY 12 HOURS SUBQ 11/22/17 21:00 12/20/17 20:59 Insulin Aspart (NovoLOG) BEFORE MEALS AND HS SUBQ 11/22/17 16:30 12/20/17 20:59 11/22/17 16:30 Levofloxacin 150 ml @ 100 mls/hr Q24H IVPB 11/22/17 16:00 11/28/17 15:59 11/22/17 16:10 Lorazepam (Ativan 2mg/ml 1ml) 2 mg Q2H PRN IV For Anxiety 11/22/17 16:00 11/27/17 15:59 Morphine Sulfate (Morphine Sulfate) 4 mg Q4H PRN IVP Severe Pain (Pain Scale 7-10) 11/22/17 16:15 11/27/17 20:14 Ondansetron HCl (Zofran) 4 mg Q6H PRN IVP Nausea & Vomiting 11/22/17 16:00 12/20/17 15:59 Polyethylene Glycol (Miralax) 17 gm DAILYPRN PRN ORAL Constipation 11/22/17 16:00 12/20/17 15:59 Promethazine HCl/ Codeine (Phenergan with Codeine) 5 ml Q4H PRN ORAL For Cough 11/22/17 16:00 12/20/17 15:59 Sodium Chloride 1,000 ml @ 50 mls/hr Q20H IV 11/22/17 16:00 12/20/17 15:59 11/22/17 16:10 Allergies: Coded Allergies: No Known Allergies (Unverified , 11/20/17) ROS Limited/Unobtainable: No Constitutional: Reports: no symptoms HEENT: Reports: no symptoms Cardiovascular: Reports: no symptoms Respiratory: Reports: no symptoms Gastrointestinal/Abdominal: Reports: no symptoms Genitourinary: Reports: no symptoms Neurologic/Psychiatric: Reports: no symptoms Subjective 72 YO M admitted with altered mental status. Await MRI brain. Await urology consult. Cover for Int Cole-Dr Sandoval Objective Last Vital Signs Date Time Temp Pulse Resp B/P (MAP) Pulse Ox O2 Delivery O2 Flow Rate FiO2 11/22/17 16:00 74 11/22/17 16:00 98.2 18 135/70 97 Room Air 98.2 11/22/17 08:05 21 11/20/17 18:49 2.0 General Appearance: WD/WN, no apparent distress, alert EENT: PERRL/EOMI, normal ENT inspection Neck: non-tender, normal alignment, supple, normal inspection Cardiovascular: normal peripheral pulses, normal rate, regular rhythm, no gallop/murmur, no JVD Respiratory/Chest: chest wall non-tender, lungs clear, normal breath sounds, no respiratory distress, no accessory muscle use Abdomen: normal bowel sounds, non tender, soft, no organomegaly, no mass Extremities: normal range of motion, non-tender Neurologic: dozer operator II-XII grossly normal, no motor/sensory deficits Skin: normal pigmentation Laboratory Tests Test 11/22/17 09:45 White Blood Count 4.0 K/UL (4.8-10.8) L Red Blood Count 5.04 M/UL (4.70-6.10) Hemoglobin 15.1 G/DL (14.2-18.0) Hematocrit 45.4 % (42.0-52.0) Mean Corpuscular Volume 90 FL (80-99) Mean Corpuscular Hemoglobin 29.9 PG (27.0-31.0) Mean Corpuscular Hemoglobin Concent 33.2 G/DL (32.0-36.0) Red Cell Distribution Width 12.0 % (11.6-14.8) Platelet Count 99 K/UL (150-450) L Mean Platelet Volume 7.9 FL (6.5-10.1) Neutrophils (%) (Auto) % (45.0-75.0) Lymphocytes (%) (Auto) % (20.0-45.0) Monocytes (%) (Auto) % (1.0-10.0) Eosinophils (%) (Auto) % (0.0-3.0) Basophils (%) (Auto) % (0.0-2.0) Differential Total Cells Counted 100 Neutrophils % (Manual) 56 % (45-75) Lymphocytes % (Manual) 32 % (20-45) Monocytes % (Manual) 11 % (1-10) H Eosinophils % (Manual) 1 % (0-3) Basophils % (Manual) 0 % (0-2) Band Neutrophils 0 % (0-8) Platelet Estimate Decreased L Platelet Morphology Normal Red Blood Cell Morphology Normal Sodium Level 137 MMOL/L (136-145) Potassium Level 4.2 MMOL/L (3.5-5.1) Chloride Level 104 MMOL/L (98-107) Carbon Dioxide Level 29 MMOL/L (21-32) Anion Gap 4 mmol/L (5-15) L Blood Urea Nitrogen 17 mg/dL (7-18) Creatinine 1.0 MG/DL (0.55-1.30) Estimat Glomerular Filtration Rate mL/min (>60) Glucose Level 271 MG/DL (74-106) #H Calcium Level 8.0 MG/DL (8.5-10.1) L Total Bilirubin 0.6 MG/DL (0.2-1.0) Aspartate Amino Transf (AST/SGOT) 38 U/L (15-37) H Alanine Aminotransferase (ALT/SGPT) 37 U/L (12-78) Alkaline Phosphatase 101 U/L (46-116) Pro-B-Type Natriuretic Peptide 54 pg/mL (0-125) Total Protein 6.5 G/DL (6.4-8.2) Albumin 2.7 G/DL (3.4-5.0) L Globulin 3.8 g/dL Albumin/Globulin Ratio 0.7 (1.0-2.7) L Vancomycin Level Trough 4.3 ug/mL (5.0-12.0) L Microbiology Date/Time Source Procedure Growth Status 11/20/17 17:16 Blood Blood Culture - Preliminary NO GROWTH AFTER 24 HOURS Resulted 11/20/17 17:01 Blood Blood Culture - Preliminary NO GROWTH AFTER 24 HOURS Resulted 11/20/17 17:45 Urine,Clean Catch Urine Culture - Preliminary Mixed Gram Positive Organism Resulted Intake and Output 11/21/17 11/22/17 19:00 07:00 Intake Total 780 ml 450 ml Balance 780 ml 450 ml Intake Oral 730 ml IV Total 50 ml 450 ml # Voids 4 1 Assessment/Plan Problem List: (1) Altered mental status Assessment & Plan: Resolving. Await MRI brain (2) Confusion (3) Diabetes mellitus type II, uncontrolled Assessment & Plan: Continue novolog (4) UTI (urinary tract infection) Assessment & Plan: Continue vanco and levaquin (5) Bladder cancer Assessment & Plan: Await urology consult Kana Cisse MD Nov 22, 2017 18:58
[2017-11-22 20:16] VITALS: BP 139/63
--- NOTE | 2017-11-22 23:45 | Consultation ---
DATE OF CONSULTATION: 11/22/2017 CONSULTING PHYSICIAN: Dario Toscano M.D. REFERRING PHYSICIAN: Mayra Prakash REASON FOR CONSULTATION: Followup bladder cancer. HISTORY OF PRESENT ILLNESS: This is a 72-year-old male, who was admitted to the hospital because of confusion and altered mental status. He was noted to have pyuria, possible UTI. He has history of bladder cancer and had resection apparently by report twice one number of years ago and once had recent surveillance cystoscopy. Again, he was admitted because of confusion and altered mental status. Urology evaluation requested. PAST MEDICAL HISTORY: Significant for above, also history of diabetes. PAST SURGICAL HISTORY: As above. CURRENT MEDICATIONS: Here in the hospital, the patient is on heparin, NovoLog, morphine, Levaquin, Tylenol, albuterol, Zofran, MiraLAX. ALLERGIES: No known drug allergies. SOCIAL HISTORY: Currently nonsmoker. FAMILY HISTORY: Noncontributory. REVIEW OF SYSTEMS: As above. PHYSICAL EXAMINATION: VITAL SIGNS: Stable. Temperature 97.8, blood pressure 139/63, pulse 68, and respirations 18. HEENT: Normocephalic. NECK: Supple. ABDOMEN: Soft. No CVA tenderness. LABORATORY DATA: UA showed 3+ protein, 10 to 15 rbc's, too numerous to count wbc's, this is his admission UA. White count is currently 4.0, hemoglobin 15.1, and platelets are 99. His BUN is 17 and creatinine 1.0, potassium 4.2. Urine culture showed mixed gram-positive organisms. DIAGNOSTIC IMAGING STUDIES: The patient had a head CT, this was basically negative. IMPRESSION: 1. History of bladder cancer. 2. Pyuria and possible urinary tract infection. 3. Hematuria. 4. Proteinuria. PLAN AND DISCUSSION: The patient outside medical records need to be obtained. He will need to have followup surveillance cystoscopies in the future and we will try to find when his last cystoscopy was. He had pyuria and he is on antibiotics per recommendation of Infectious Diseases. Any other recommendation will be forthcoming. Thank you, Dr. Cisse, for asking to see this patient in consultation. Dario Toscano M.D. DR: Dick JOB#: [id number] CC:
[2017-11-23 00:47] VITALS: BP 135/68
[2017-11-23 04:09] VITALS: BP 148/76
[2017-11-23] MEDS: NovoLOG Insulin Flexpen SUBQ SCH ×4 (06:13→20:46)
[2017-11-23 06:18] LABS: BASOPHILS % (AUTO) 0.9 % (0.0-2.0); EOSINOPHILS % (AUTO) 2.9 % (0.0-3.0); HEMATOCRIT 45.1 % (42.0-52.0); HEMOGLOBIN 15.5 G/DL (14.2-18.0); LYMPHOCYTES % (AUTO) 38.4 % (20.0-45.0); MEAN CORPUSCULAR VOLUME 91 FL (80-99); MONOCYTES % (AUTO) 8.7 % (1.0-10.0); NEUTROPHILS % (AUTO) 49.1 % (45.0-75.0); PLATELET COUNT 108 K/UL (150-450); RED BLOOD COUNT 4.98 M/UL (4.70-6.10); RED CELL DISTRIBUTION WIDTH 11.9 % (11.6-14.8); WHITE BLOOD COUNT 5.6 K/UL (4.8-10.8)
[2017-11-23 06:46] LABS: ALANINE AMINOTRANSFERASE 41 U/L (12-78); ALBUMIN/GLOBULIN RATIO 0.7 (1.0-2.7); ALKALINE PHOSPHATASE 107 U/L (46-116); ANION GAP 8 mmol/L (5-15); ASPARTATE AMINO TRANSFERASE 40 U/L (15-37); BILIRUBIN,TOTAL 0.5 MG/DL (0.2-1.0); BLOOD UREA NITROGEN 15 mg/dL (7-18); CALCIUM 8.8 MG/DL (8.5-10.1); CARBON DIOXIDE 26 MMOL/L (21-32); CHLORIDE 103 MMOL/L (98-107); CREATININE 0.9 MG/DL (0.55-1.30); PHOSPHORUS 2.8 MG/DL (2.5-4.9); SODIUM 137 MMOL/L (136-145)
--- NOTE | 2017-11-23 07:18 | Urology Progress Note ---
Assessment/Plan Assessment/Plan 1. History of bladder cancer. 2. Pyuria and possible urinary tract infection. 3. Hematuria. 4. Proteinuria. monitor clinically abx as ordered get outside recs if poss Subjective Allergies: Coded Allergies: No Known Allergies (Unverified , 11/20/17) Subjective feels fair, more alert, voiding ok Objective Last 24 Hour Vital Signs Date Time Temp Pulse Resp B/P (MAP) Pulse Ox O2 Delivery O2 Flow Rate FiO2 11/23/17 04:09 97.7 57 17 148/76 97 97.7 11/23/17 00:47 98.0 63 17 135/68 94 98.0 11/22/17 20:16 97.8 60 18 139/63 93 97.8 11/22/17 16:00 74 11/22/17 16:00 98.2 60 18 135/70 97 Room Air 98.2 11/22/17 12:00 98.0 62 20 135/76 97 Room Air 98.0 11/22/17 12:00 74 11/22/17 08:05 74 18 Room Air 21 11/22/17 08:05 94 Room Air 21 11/22/17 08:00 97.7 63 20 126/63 95 Room Air 97.7 11/22/17 08:00 69 Intake and Output 11/22/17 11/23/17 19:00 07:00 Intake Total 300 ml 360 ml Balance 300 ml 360 ml Intake Oral 300 ml 360 ml # Voids 2 2 Microbiology Date/Time Source Procedure Growth Status 11/20/17 17:16 Blood Blood Culture - Preliminary NO GROWTH AFTER 48 HOURS Resulted 11/20/17 17:45 Urine,Clean Catch Urine Culture - Preliminary Mixed Gram Positive Organism Resulted Current Medications Medications (Trade) Dose Ordered Sig/Leslie Route PRN Reason Start Time Stop Time Status Last Admin Dose Admin Acetaminophen (Tylenol) 650 mg Q4H PRN ORAL FEVER (temp>100.5F) 11/22/17 16:00 12/20/17 15:59 Albuterol/ Ipratropium (Albuterol/ Ipratropium) 3 ml Q4H PRN HHN Shortness of Breath 11/22/17 16:00 11/25/17 15:59 Dextrose (Dextrose 50%) 25 ml STAT PRN IV Hypoglycemia 11/22/17 16:00 12/20/17 15:59 Dextrose (Dextrose 50%) 50 ml STAT PRN IV Hypoglycemia 11/22/17 16:00 12/20/17 15:59 Heparin Sodium (Porcine) (Heparin 5000 units/ml) 5,000 units EVERY 12 HOURS SUBQ 11/22/17 21:00 12/20/17 20:59 Insulin Aspart (NovoLOG) BEFORE MEALS AND HS SUBQ 11/22/17 16:30 12/20/17 20:59 11/23/17 06:13 Levofloxacin 150 ml @ 100 mls/hr Q24H IVPB 11/22/17 16:00 11/28/17 15:59 11/22/17 16:10 Lorazepam (Ativan 2mg/ml 1ml) 2 mg Q2H PRN IV For Anxiety 11/22/17 16:00 11/27/17 15:59 Morphine Sulfate (Morphine Sulfate) 4 mg Q4H PRN IVP Severe Pain (Pain Scale 7-10) 11/22/17 16:15 11/27/17 20:14 Ondansetron HCl (Zofran) 4 mg Q6H PRN IVP Nausea & Vomiting 11/22/17 16:00 12/20/17 15:59 Polyethylene Glycol (Miralax) 17 gm DAILYPRN PRN ORAL Constipation 11/22/17 16:00 12/20/17 15:59 Promethazine HCl/ Codeine (Phenergan with Codeine) 5 ml Q4H PRN ORAL For Cough 11/22/17 16:00 12/20/17 15:59 Sodium Chloride 1,000 ml @ 50 mls/hr Q20H IV 11/22/17 16:00 12/20/17 15:59 11/22/17 16:10 Laboratory Tests 11/22/17 09:45: White Blood Count 4.0L, Red Blood Count 5.04, Hemoglobin 15.1, Hematocrit 45.4, Mean Corpuscular Volume 90, Mean Corpuscular Hemoglobin 29.9, Mean Corpuscular Hemoglobin Concent 33.2, Red Cell Distribution Width 12.0, Platelet Count 99L, Mean Platelet Volume 7.9, Neutrophils (%) (Auto) , Lymphocytes (%) (Auto) , Monocytes (%) (Auto) , Eosinophils (%) (Auto) , Basophils (%) (Auto) , Differential Total Cells Counted 100, Neutrophils % (Manual) 56, Lymphocytes % ( Manual) 32, Monocytes % (Manual) 11H, Eosinophils % (Manual) 1, Basophils % ( Manual) 0, Band Neutrophils 0, Platelet Estimate DecreasedL, Platelet Morphology Normal, Red Blood Cell Morphology Normal, Sodium Level 137, Potassium Level 4.2, Chloride Level 104, Carbon Dioxide Level 29, Anion Gap 4L, Blood Urea Nitrogen 17, Creatinine 1.0, Estimat Glomerular Filtration Rate , Glucose Level 271#H, Calcium Level 8.0L, Total Bilirubin 0.6, Aspartate Amino Transf (AST/SGOT) 38H, Alanine Aminotransferase (ALT/SGPT) 37, Alkaline Phosphatase 101, Pro-B-Type Natriuretic Peptide 54, Total Protein 6.5, Albumin 2.7L, Globulin 3.8, Albumin/Globulin Ratio 0.7L, Vancomycin Level Trough 4.3L 11/23/17 05:00: White Blood Count 5.6, Red Blood Count 4.98, Hemoglobin 15.5, Hematocrit 45.1, Mean Corpuscular Volume 91, Mean Corpuscular Hemoglobin 31.1H, Mean Corpuscular Hemoglobin Concent 34.3, Red Cell Distribution Width 11.9, Platelet Count 108L, Mean Platelet Volume 8.4, Neutrophils (%) (Auto) 49.1, Lymphocytes (%) (Auto) 38.4, Monocytes (%) (Auto) 8.7, Eosinophils (%) (Auto) 2.9, Basophils (%) (Auto ) 0.9, Sodium Level 137, Potassium Level 4.0, Chloride Level 103, Carbon Dioxide Level 26, Anion Gap 8, Blood Urea Nitrogen 15, Creatinine 0.9, Estimat Glomerular Filtration Rate , Glucose Level 213H, Calcium Level 8.8, Total Bilirubin 0.5, Aspartate Amino Transf (AST/SGOT) 40H, Alanine Aminotransferase ( ALT/SGPT) 41, Alkaline Phosphatase 107, Total Protein 7.1, Albumin 3.0L, Globulin 4.1, Albumin/Globulin Ratio 0.7L, Erythrocyte Sedimentation Rate [ Pending], Phosphorus Level 2.8, Magnesium Level 1.8, C-Reactive Protein, Quantitative 1.9H Height (Feet): 5 Height (Inches): 8.00 Weight (Pounds): 199 Objective exm VIVIENNE Cuevas Nov 23, 2017 07:18
[2017-11-23 08:07] VITALS: BP 142/79
[2017-11-23] MEDS: Heparin 5000 units/ml inj SUBQ SCH ×2 (09:58→20:40)
[2017-11-23] MEDS: Promethazine/Codeine 5ml UD ORAL PRN (10:34)
[2017-11-23 12:00] VITALS: BP 125/65
--- NOTE | 2017-11-23 12:02 | Pulmonology Progress Note ---
Assessment/Plan Problems: (1) Sepsis (2) Altered mental status (3) Bronchitis (4) Bladder cancer (5) Diabetes mellitus type II, uncontrolled Assessment/Plan iv abx respiratory treatment antitussives check sputum and other cultures sliding scale, diabetic diet dvt prophylaxis check cultures med/surg Subjective ROS Limited/Unobtainable: No Interval Events: still coughing Allergies: Coded Allergies: No Known Allergies (Unverified , 11/20/17) Objective Last 24 Hour Vital Signs Date Time Temp Pulse Resp B/P (MAP) Pulse Ox O2 Delivery O2 Flow Rate FiO2 11/23/17 08:07 98.0 59 19 142/79 98 98.0 11/23/17 04:09 97.7 57 17 148/76 97 97.7 11/23/17 00:47 98.0 63 17 135/68 94 98.0 11/22/17 20:16 97.8 60 18 139/63 93 97.8 11/22/17 16:00 74 11/22/17 16:00 98.2 60 18 135/70 97 Room Air 98.2 Intake and Output 11/22/17 11/23/17 19:00 07:00 Intake Total 300 ml 460 ml Balance 300 ml 460 ml Intake Oral 300 ml 360 ml IV Total 100 ml # Voids 2 2 General Appearance: WD/WN HEENT: normocephalic, atraumatic Respiratory/Chest: chest wall non-tender, lungs clear Cardiovascular: normal peripheral pulses, normal rate Abdomen: normal bowel sounds, soft, non tender Genitourinary: normal external genitalia Extremities: no cyanosis Neurologic/Psychiatric: scaffold builder II-XII grossly normal Microbiology Date/Time Source Procedure Growth Status 11/20/17 17:16 Blood Blood Culture - Preliminary NO GROWTH AFTER 48 HOURS Resulted 11/20/17 17:01 Blood Blood Culture - Preliminary NO GROWTH AFTER 48 HOURS Resulted 11/20/17 17:45 Urine,Clean Catch Urine Culture - Final Mixed Gram Positive Organism Complete Laboratory Tests 11/23/17 05:00: White Blood Count 5.6, Red Blood Count 4.98, Hemoglobin 15.5, Hematocrit 45.1, Mean Corpuscular Volume 91, Mean Corpuscular Hemoglobin 31.1H, Mean Corpuscular Hemoglobin Concent 34.3, Red Cell Distribution Width 11.9, Platelet Count 108L, Mean Platelet Volume 8.4, Neutrophils (%) (Auto) 49.1, Lymphocytes (%) (Auto) 38.4, Monocytes (%) (Auto) 8.7, Eosinophils (%) (Auto) 2.9, Basophils (%) (Auto ) 0.9, Erythrocyte Sedimentation Rate 25H, Sodium Level 137, Potassium Level 4.0 , Chloride Level 103, Carbon Dioxide Level 26, Anion Gap 8, Blood Urea Nitrogen 15, Creatinine 0.9, Estimat Glomerular Filtration Rate , Glucose Level 213H, Calcium Level 8.8, Phosphorus Level 2.8, Magnesium Level 1.8, Total Bilirubin 0.5, Aspartate Amino Transf (AST/SGOT) 40H, Alanine Aminotransferase (ALT/SGPT) 41, Alkaline Phosphatase 107, C-Reactive Protein, Quantitative 1.9H, Total Protein 7.1, Albumin 3.0L, Globulin 4.1, Albumin/Globulin Ratio 0.7L Current Medications Medications (Trade) Dose Ordered Sig/Leslie Route PRN Reason Start Time Stop Time Status Last Admin Dose Admin Acetaminophen (Tylenol) 650 mg Q4H PRN ORAL FEVER (temp>100.5F) 11/22/17 16:00 12/20/17 15:59 Albuterol/ Ipratropium (Albuterol/ Ipratropium) 3 ml Q4H PRN HHN Shortness of Breath 11/22/17 16:00 11/25/17 15:59 Dextrose (Dextrose 50%) 25 ml STAT PRN IV Hypoglycemia 11/22/17 16:00 12/20/17 15:59 Dextrose (Dextrose 50%) 50 ml STAT PRN IV Hypoglycemia 11/22/17 16:00 12/20/17 15:59 Heparin Sodium (Porcine) (Heparin 5000 units/ml) 5,000 units EVERY 12 HOURS SUBQ 11/22/17 21:00 12/20/17 20:59 Insulin Aspart (NovoLOG) BEFORE MEALS AND HS SUBQ 11/22/17 16:30 12/20/17 20:59 11/23/17 06:13 Levofloxacin 150 ml @ 100 mls/hr Q24H IVPB 11/22/17 16:00 11/28/17 15:59 11/22/17 16:10 Lorazepam (Ativan 2mg/ml 1ml) 2 mg Q2H PRN IV For Anxiety 11/22/17 16:00 11/27/17 15:59 Morphine Sulfate (Morphine Sulfate) 4 mg Q4H PRN IVP Severe Pain (Pain Scale 7-10) 11/22/17 16:15 11/27/17 20:14 Ondansetron HCl (Zofran) 4 mg Q6H PRN IVP Nausea & Vomiting 11/22/17 16:00 12/20/17 15:59 Polyethylene Glycol (Miralax) 17 gm DAILYPRN PRN ORAL Constipation 11/22/17 16:00 12/20/17 15:59 Promethazine HCl/ Codeine (Phenergan with Codeine) 5 ml Q4H PRN ORAL For Cough 11/22/17 16:00 12/20/17 15:59 11/23/17 10:34 Sodium Chloride 1,000 ml @ 50 mls/hr Q20H IV 11/22/17 16:00 12/20/17 15:59 11/22/17 16:10 Sabine Mendez MD Nov 23, 2017 12:02
[2017-11-23] MEDS ORDERED: Promethazine/Codeine 5ml UD ORAL PRN (12:30)
[2017-11-23] MEDS ORDERED: Albuterol ud Inhalation HHN PRN (12:30)
--- NOTE | 2017-11-23 12:30 | Cardiology Progress Note ---
Assessment/Plan Status: stable Assessment/Plan Continue treatment for UTI Echo reviewed, normal function, no endocarditis no acute CVA, awaiting brain MRi CV stable urology work up in process Subjective Cardiovascular: Reports: no symptoms Respiratory: Reports: no symptoms Gastrointestinal/Abdominal: Reports: no symptoms Genitourinary: Reports: no symptoms Subjective No acute events Patient alert/oriented Afebrile, vitals stable Echo normal Awaiting Brain MRI and urology work up of bladder cancer CV stable, BP controlled Objective Last 24 Hour Vital Signs Date Time Temp Pulse Resp B/P (MAP) Pulse Ox O2 Delivery O2 Flow Rate FiO2 11/23/17 08:32 64 20 Room Air 21 11/23/17 08:32 96 Room Air 21 11/23/17 08:07 98.0 59 19 142/79 98 98.0 11/23/17 04:09 97.7 57 17 148/76 97 97.7 11/23/17 00:47 98.0 63 17 135/68 94 98.0 11/22/17 20:16 97.8 60 18 139/63 93 97.8 11/22/17 16:00 74 11/22/17 16:00 98.2 60 18 135/70 97 Room Air 98.2 General Appearance: no apparent distress EENT: PERRL/EOMI Neck: non-tender Rhythm: NSR Cardiovascular: normal peripheral pulses Respiratory/Chest: chest wall non-tender Abdomen: normal bowel sounds Extremities: normal range of motion, non-tender Neurologic: remodeler II-XII grossly normal Intake and Output 11/22/17 11/23/17 19:00 07:00 Intake Total 300 ml 460 ml Balance 300 ml 460 ml Intake Oral 300 ml 360 ml IV Total 100 ml # Voids 2 2 Laboratory Tests Test 11/23/17 05:00 White Blood Count 5.6 K/UL (4.8-10.8) Red Blood Count 4.98 M/UL (4.70-6.10) Hemoglobin 15.5 G/DL (14.2-18.0) Hematocrit 45.1 % (42.0-52.0) Mean Corpuscular Volume 91 FL (80-99) Mean Corpuscular Hemoglobin 31.1 PG (27.0-31.0) H Mean Corpuscular Hemoglobin Concent 34.3 G/DL (32.0-36.0) Red Cell Distribution Width 11.9 % (11.6-14.8) Platelet Count 108 K/UL (150-450) L Mean Platelet Volume 8.4 FL (6.5-10.1) Neutrophils (%) (Auto) 49.1 % (45.0-75.0) Lymphocytes (%) (Auto) 38.4 % (20.0-45.0) Monocytes (%) (Auto) 8.7 % (1.0-10.0) Eosinophils (%) (Auto) 2.9 % (0.0-3.0) Basophils (%) (Auto) 0.9 % (0.0-2.0) Erythrocyte Sedimentation Rate 25 MM/HR (0-20) H Sodium Level 137 MMOL/L (136-145) Potassium Level 4.0 MMOL/L (3.5-5.1) Chloride Level 103 MMOL/L (98-107) Carbon Dioxide Level 26 MMOL/L (21-32) Anion Gap 8 mmol/L (5-15) Blood Urea Nitrogen 15 mg/dL (7-18) Creatinine 0.9 MG/DL (0.55-1.30) Estimat Glomerular Filtration Rate mL/min (>60) Glucose Level 213 MG/DL (74-106) H Calcium Level 8.8 MG/DL (8.5-10.1) Phosphorus Level 2.8 MG/DL (2.5-4.9) Magnesium Level 1.8 MG/DL (1.8-2.4) Total Bilirubin 0.5 MG/DL (0.2-1.0) Aspartate Amino Transf (AST/SGOT) 40 U/L (15-37) H Alanine Aminotransferase (ALT/SGPT) 41 U/L (12-78) Alkaline Phosphatase 107 U/L (46-116) C-Reactive Protein, Quantitative 1.9 mg/dL (0.00-0.90) H Total Protein 7.1 G/DL (6.4-8.2) Albumin 3.0 G/DL (3.4-5.0) L Globulin 4.1 g/dL Albumin/Globulin Ratio 0.7 (1.0-2.7) L Microbiology Date/Time Source Procedure Growth Status 11/20/17 17:16 Blood Blood Culture - Preliminary NO GROWTH AFTER 48 HOURS Resulted 11/20/17 17:01 Blood Blood Culture - Preliminary NO GROWTH AFTER 48 HOURS Resulted 11/20/17 17:45 Urine,Clean Catch Urine Culture - Final Mixed Gram Positive Organism Complete Roger Westbrook M.D. Nov 23, 2017 12:30
[2017-11-23] MEDS ORDERED: Benzonatate 100mg Perles ORAL SCH (13:30)
--- NOTE | 2017-11-23 15:50 | Infectious Diseases Prog Note ---
Assessment/Plan Assessment/Plan ASSESSMENT: The patient is a 72-year-old male with: 1. Status post altered level of consciousness/confusion that improved 2. No evidence of meningitis/encephalitis. 3. Probably chronic obstructive pulmonary disease exacerbation versus community- acquired pneumonia. The patient's cough has increased recently in the last few days. -CXR: Increased interstitial markings. This may be related to mild pulmonary vascular congestion, interstitial edema, or interstitial pneumonitis. This appears mildly improved compared to the prior chest x-ray. 4. Pyuria. No urinary tract symptoms, however, need to rule out urinary tract infection. -u/a wbc tntc.nit -, leuk +2; ucx 40-50k mixed gram positive growth 5. Normal lactic acid. 6. Normal white blood cells. 7. Fever, improving. 8. Rule out bacteremia. -BCx NTD -. History of bladder cancer, status post surgery x3, first time 10 years ago and the patient has also surgery? cystoscopy in June and July 2017. -. History of diabetes. -. History of right knee replacement. PLAN: -. Continue Levaquin abx d#4/5-7 (switch to PO) for possible urinary tract infection and pneumonia. -11/21 SP IV Vando and Cefepime #2 - Monitor CBC, BMP. -. Monitor cultures (blood, urine, sputum). -. Monitor vital signs. -. Monitor chest x-ray. -. Based on the patient's clinical course and labs, we will do further recommendations. Thank you, Dr. Sandoval and Dr. Mendez for allowing me to participate in the care of this patient. I will follow the patient with you during this hospitalization. Subjective Allergies: Coded Allergies: No Known Allergies (Unverified , 11/20/17) Subjective afebrile in >48hrs no leukocytosis Bcx NTD Objective Vital Signs Last 24 Hour Vital Signs Date Time Temp Pulse Resp B/P (MAP) Pulse Ox O2 Delivery O2 Flow Rate FiO2 11/23/17 12:00 98.0 81 20 125/65 98 98.0 11/23/17 08:32 64 20 Room Air 21 11/23/17 08:32 96 Room Air 21 11/23/17 08:07 98.0 59 19 142/79 98 98.0 11/23/17 04:09 97.7 57 17 148/76 97 97.7 6/25/18 00:47 98.0 63 17 135/68 94 98.0 11/22/17 20:16 97.8 60 18 139/63 93 97.8 11/22/17 16:00 74 11/22/17 16:00 98.2 60 18 135/70 97 Room Air 98.2 Height (Feet): 5 Height (Inches): 8.00 Weight (Pounds): 199 Objective HEENT: No pale conjunctivae. No icterus. NECK: No lymphadenopathy. CHEST: Clear. HEART: S1 and S2. ABDOMEN: Soft and nontender. EXTREMITIES: No cyanosis at this time. NEUROLOGIC: Awake and alert. Microbiology Date/Time Source Procedure Growth Status 11/20/17 17:16 Blood Blood Culture - Preliminary NO GROWTH AFTER 48 HOURS Resulted 11/20/17 17:01 Blood Blood Culture - Preliminary NO GROWTH AFTER 48 HOURS Resulted 11/20/17 17:45 Urine,Clean Catch Urine Culture - Final Mixed Gram Positive Organism Complete Laboratory Tests Test 11/23/17 05:00 White Blood Count 5.6 K/UL (4.8-10.8) Red Blood Count 4.98 M/UL (4.70-6.10) Hemoglobin 15.5 G/DL (14.2-18.0) Hematocrit 45.1 % (42.0-52.0) Mean Corpuscular Volume 91 FL (80-99) Mean Corpuscular Hemoglobin 31.1 PG (27.0-31.0) H Mean Corpuscular Hemoglobin Concent 34.3 G/DL (32.0-36.0) Red Cell Distribution Width 11.9 % (11.6-14.8) Platelet Count 108 K/UL (150-450) L Mean Platelet Volume 8.4 FL (6.5-10.1) Neutrophils (%) (Auto) 49.1 % (45.0-75.0) Lymphocytes (%) (Auto) 38.4 % (20.0-45.0) Monocytes (%) (Auto) 8.7 % (1.0-10.0) Eosinophils (%) (Auto) 2.9 % (0.0-3.0) Basophils (%) (Auto) 0.9 % (0.0-2.0) Erythrocyte Sedimentation Rate 25 MM/HR (0-20) H Sodium Level 137 MMOL/L (136-145) Potassium Level 4.0 MMOL/L (3.5-5.1) Chloride Level 103 MMOL/L (98-107) Carbon Dioxide Level 26 MMOL/L (21-32) Anion Gap 8 mmol/L (5-15) Blood Urea Nitrogen 15 mg/dL (7-18) Creatinine 0.9 MG/DL (0.55-1.30) Estimat Glomerular Filtration Rate mL/min (>60) Glucose Level 213 MG/DL (74-106) H Calcium Level 8.8 MG/DL (8.5-10.1) Phosphorus Level 2.8 MG/DL (2.5-4.9) Magnesium Level 1.8 MG/DL (1.8-2.4) Total Bilirubin 0.5 MG/DL (0.2-1.0) Aspartate Amino Transf (AST/SGOT) 40 U/L (15-37) H Alanine Aminotransferase (ALT/SGPT) 41 U/L (12-78) Alkaline Phosphatase 107 U/L (46-116) C-Reactive Protein, Quantitative 1.9 mg/dL (0.00-0.90) H Total Protein 7.1 G/DL (6.4-8.2) Albumin 3.0 G/DL (3.4-5.0) L Globulin 4.1 g/dL Albumin/Globulin Ratio 0.7 (1.0-2.7) L Current Medications Medications (Trade) Dose Ordered Sig/Leslie Route PRN Reason Start Time Stop Time Status Last Admin Dose Admin Acetaminophen (Tylenol) 650 mg Q4H PRN ORAL FEVER (temp>100.5F) 11/22/17 16:00 12/20/17 15:59 Albuterol/ Ipratropium (Albuterol/ Ipratropium) 3 ml Q4H PRN HHN Shortness of Breath 11/22/17 16:00 11/25/17 15:59 Benzonatate (Tessalon Perles) 100 mg THREE TIMES A DAY ORAL 11/23/17 18:00 12/23/17 17:59 Dextrose (Dextrose 50%) 25 ml STAT PRN IV Hypoglycemia 11/22/17 16:00 12/20/17 15:59 Dextrose (Dextrose 50%) 50 ml STAT PRN IV Hypoglycemia 11/22/17 16:00 12/20/17 15:59 Heparin Sodium (Porcine) (Heparin 5000 units/ml) 5,000 units EVERY 12 HOURS SUBQ 11/22/17 21:00 12/20/17 20:59 Insulin Aspart (NovoLOG) BEFORE MEALS AND HS SUBQ 11/22/17 16:30 12/20/17 20:59 11/23/17 12:15 Levofloxacin 150 ml @ 100 mls/hr Q24H IVPB 11/22/17 16:00 11/28/17 15:59 11/22/17 16:10 Lorazepam (Ativan 2mg/ml 1ml) 2 mg Q2H PRN IV For Anxiety 11/22/17 16:00 11/27/17 15:59 Morphine Sulfate (Morphine Sulfate) 4 mg Q4H PRN IVP Severe Pain (Pain Scale 7-10) 11/22/17 16:15 11/27/17 20:14 Ondansetron HCl (Zofran) 4 mg Q6H PRN IVP Nausea & Vomiting 11/22/17 16:00 12/20/17 15:59 Polyethylene Glycol (Miralax) 17 gm DAILYPRN PRN ORAL Constipation 11/22/17 16:00 12/20/17 15:59 Promethazine HCl/ Codeine (Phenergan with Codeine) 5 ml Q4H PRN ORAL For Cough 11/22/17 16:00 12/20/17 15:59 11/23/17 10:34 Sodium Chloride 1,000 ml @ 50 mls/hr Q20H IV 11/22/17 16:00 12/20/17 15:59 11/22/17 16:10 Sri Julien M.D. Nov 23, 2017 15:50
[2017-11-23 16:02] VITALS: BP 136/72
[2017-11-23] MEDS: Benzonatate 100mg Perles ORAL SCH (17:11)
[2017-11-23] MEDS: Levofloxacin 500mg tab ORAL SCH (17:11)
--- NOTE | 2017-11-23 18:55 | Internal Med Progress Note ---
Subjective Date of Service: Nov 23, 2017 Physician Name Kana Cisse Attending Physician Arnulfo Sandoval MD Current Medications Medications (Trade) Dose Ordered Sig/Leslie Route PRN Reason Start Time Stop Time Status Last Admin Dose Admin Acetaminophen (Tylenol) 650 mg Q4H PRN ORAL FEVER (temp>100.5F) 11/22/17 16:00 12/20/17 15:59 Albuterol/ Ipratropium (Albuterol/ Ipratropium) 3 ml Q4H PRN HHN Shortness of Breath 11/22/17 16:00 11/25/17 15:59 Benzonatate (Tessalon Perles) 100 mg THREE TIMES A DAY ORAL 11/23/17 18:00 12/23/17 17:59 11/23/17 17:11 Dextrose (Dextrose 50%) 25 ml STAT PRN IV Hypoglycemia 11/22/17 16:00 12/20/17 15:59 Dextrose (Dextrose 50%) 50 ml STAT PRN IV Hypoglycemia 11/22/17 16:00 12/20/17 15:59 Heparin Sodium (Porcine) (Heparin 5000 units/ml) 5,000 units EVERY 12 HOURS SUBQ 11/22/17 21:00 12/20/17 20:59 Insulin Aspart (NovoLOG) BEFORE MEALS AND HS SUBQ 11/22/17 16:30 12/20/17 20:59 11/23/17 17:11 Levofloxacin (Levaquin) 500 mg Q24H ORAL 11/23/17 16:00 11/30/17 15:59 11/23/17 17:11 Lorazepam (Ativan 2mg/ml 1ml) 2 mg Q2H PRN IV For Anxiety 11/22/17 16:00 11/27/17 15:59 Morphine Sulfate (Morphine Sulfate) 4 mg Q4H PRN IVP Severe Pain (Pain Scale 7-10) 11/22/17 16:15 11/27/17 20:14 Ondansetron HCl (Zofran) 4 mg Q6H PRN IVP Nausea & Vomiting 11/22/17 16:00 12/20/17 15:59 Polyethylene Glycol (Miralax) 17 gm DAILYPRN PRN ORAL Constipation 11/22/17 16:00 12/20/17 15:59 Promethazine HCl/ Codeine (Phenergan with Codeine) 5 ml Q4H PRN ORAL For Cough 11/22/17 16:00 12/20/17 15:59 11/23/17 10:34 Sodium Chloride 1,000 ml @ 50 mls/hr Q20H IV 11/22/17 16:00 12/20/17 15:59 11/22/17 16:10 Allergies: Coded Allergies: No Known Allergies (Unverified , 11/20/17) ROS Limited/Unobtainable: No Constitutional: Reports: no symptoms HEENT: Reports: no symptoms Cardiovascular: Reports: no symptoms Respiratory: Reports: no symptoms Gastrointestinal/Abdominal: Reports: no symptoms Genitourinary: Reports: no symptoms Neurologic/Psychiatric: Reports: no symptoms Subjective 72 YO M admitted with altered mental status. Await MRI brain. Cover for Int Cole-Dr Sandoval Objective Last Vital Signs Date Time Temp Pulse Resp B/P (MAP) Pulse Ox O2 Delivery O2 Flow Rate FiO2 11/23/17 16:02 97.9 62 20 136/72 96 Room Air 97.9 11/23/17 08:32 21 11/20/17 18:49 2.0 Laboratory Tests Test 11/23/17 05:00 White Blood Count 5.6 K/UL (4.8-10.8) Red Blood Count 4.98 M/UL (4.70-6.10) Hemoglobin 15.5 G/DL (14.2-18.0) Hematocrit 45.1 % (42.0-52.0) Mean Corpuscular Volume 91 FL (80-99) Mean Corpuscular Hemoglobin 31.1 PG (27.0-31.0) H Mean Corpuscular Hemoglobin Concent 34.3 G/DL (32.0-36.0) Red Cell Distribution Width 11.9 % (11.6-14.8) Platelet Count 108 K/UL (150-450) L Mean Platelet Volume 8.4 FL (6.5-10.1) Neutrophils (%) (Auto) 49.1 % (45.0-75.0) Lymphocytes (%) (Auto) 38.4 % (20.0-45.0) Monocytes (%) (Auto) 8.7 % (1.0-10.0) Eosinophils (%) (Auto) 2.9 % (0.0-3.0) Basophils (%) (Auto) 0.9 % (0.0-2.0) Erythrocyte Sedimentation Rate 25 MM/HR (0-20) H Sodium Level 137 MMOL/L (136-145) Potassium Level 4.0 MMOL/L (3.5-5.1) Chloride Level 103 MMOL/L (98-107) Carbon Dioxide Level 26 MMOL/L (21-32) Anion Gap 8 mmol/L (5-15) Blood Urea Nitrogen 15 mg/dL (7-18) Creatinine 0.9 MG/DL (0.55-1.30) Estimat Glomerular Filtration Rate mL/min (>60) Glucose Level 213 MG/DL (74-106) H Calcium Level 8.8 MG/DL (8.5-10.1) Phosphorus Level 2.8 MG/DL (2.5-4.9) Magnesium Level 1.8 MG/DL (1.8-2.4) Total Bilirubin 0.5 MG/DL (0.2-1.0) Aspartate Amino Transf (AST/SGOT) 40 U/L (15-37) H Alanine Aminotransferase (ALT/SGPT) 41 U/L (12-78) Alkaline Phosphatase 107 U/L (46-116) C-Reactive Protein, Quantitative 1.9 mg/dL (0.00-0.90) H Total Protein 7.1 G/DL (6.4-8.2) Albumin 3.0 G/DL (3.4-5.0) L Globulin 4.1 g/dL Albumin/Globulin Ratio 0.7 (1.0-2.7) L Intake and Output 11/22/17 11/23/17 19:00 07:00 Intake Total 300 ml 460 ml Balance 300 ml 460 ml Intake Oral 300 ml 360 ml IV Total 100 ml # Voids 2 2 Objective General Appearance: WD/WN, no apparent distress, alert EENT: PERRL/EOMI, normal ENT inspection Neck: non-tender, normal alignment, supple, normal inspection Cardiovascular: normal peripheral pulses, normal rate, regular rhythm, no gallop/murmur, no JVD Respiratory/Chest: chest wall non-tender, lungs clear, normal breath sounds, no respiratory distress, no accessory muscle use Abdomen: normal bowel sounds, non tender, soft, no organomegaly, no mass Extremities: normal range of motion, non-tender Neurologic: cone chocolate dipper II-XII grossly normal, no motor/sensory deficits Skin: normal pigmentation Assessment/Plan Problem List: (1) Altered mental status Assessment & Plan: Resolving. Await MRI brain (2) Confusion (3) Diabetes mellitus type II, uncontrolled Assessment & Plan: Continue novolog (4) UTI (urinary tract infection) Assessment & Plan: Continue vanco and levaquin (5) Bladder cancer Assessment & Plan: See urology consult-will need cystoscopy Status: stable Kana Cisse MD Nov 23, 2017 18:55
[2017-11-23 20:00] VITALS: BP 146/79
[2017-11-24] VITALS: BP 141/76
[2017-11-24] MEDS: Promethazine/Codeine 5ml UD ORAL PRN ×2 (00:28→08:49)
[2017-11-24 04:00] VITALS: BP 140/73
[2017-11-24] MEDS: NovoLOG Insulin Flexpen SUBQ SCH ×3 (06:10→16:20)
[2017-11-24 06:26] LABS: BASOPHILS % (AUTO) 0.7 % (0.0-2.0); EOSINOPHILS % (AUTO) 2.2 % (0.0-3.0); HEMOGLOBIN 15.1 G/DL (14.2-18.0); LYMPHOCYTES % (AUTO) 35.2 % (20.0-45.0); MEAN CORPUSCULAR VOLUME 91 FL (80-99); MONOCYTES % (AUTO) 10.2 % (1.0-10.0); NEUTROPHILS % (AUTO) 51.8 % (45.0-75.0); PLATELET COUNT 124 K/UL (150-450); RED BLOOD COUNT 4.96 M/UL (4.70-6.10); RED CELL DISTRIBUTION WIDTH 12.1 % (11.6-14.8); WHITE BLOOD COUNT 5.8 K/UL (4.8-10.8)
[2017-11-24 06:46] LABS: ANION GAP 6 mmol/L (5-15); BLOOD UREA NITROGEN 11 mg/dL (7-18); CALCIUM 9.1 MG/DL (8.5-10.1); CARBON DIOXIDE 27 MMOL/L (21-32); CHLORIDE 105 MMOL/L (98-107); CREATININE 0.8 MG/DL (0.55-1.30); POTASSIUM 4.3 MMOL/L (3.5-5.1); SODIUM 138 MMOL/L (136-145)
--- NOTE | 2017-11-24 07:38 | Urology Progress Note ---
Assessment/Plan Assessment/Plan 1. History of bladder cancer. 2. Pyuria and possible urinary tract infection. 3. Hematuria. 4. Proteinuria. monitor clinically abx as ordered review outside recs may need bladder bx at some point consider renal imaging Subjective Allergies: Coded Allergies: No Known Allergies (Unverified , 11/20/17) Subjective feels fair, alert, voiding ok Objective Last 24 Hour Vital Signs Date Time Temp Pulse Resp B/P (MAP) Pulse Ox O2 Delivery O2 Flow Rate FiO2 11/24/17 04:00 97.7 70 20 140/73 94 Room Air 97.7 11/24/17 00:00 98.1 72 20 141/76 96 Room Air 98.1 11/23/17 20:11 55 16 99 Room Air 21 11/23/17 20:06 62 16 96 Room Air 21 11/23/17 20:05 95 Room Air 21 11/23/17 20:04 60 16 Room Air 21 11/23/17 20:00 98.0 73 20 146/79 95 Room Air 98.0 11/23/17 16:02 97.9 62 20 136/72 96 Room Air 97.9 11/23/17 12:00 98.0 81 20 125/65 98 98.0 11/23/17 08:32 64 20 Room Air 21 11/23/17 08:32 96 Room Air 21 11/23/17 08:07 98.0 59 19 142/79 98 98.0 Intake and Output 11/23/17 11/24/17 19:00 07:00 Intake Total 410 ml 670 ml Balance 410 ml 670 ml Intake Oral 360 ml 120 ml IV Total 50 ml 550 ml # Voids 4 2 Microbiology Date/Time Source Procedure Growth Status 11/20/17 17:16 Blood Blood Culture - Preliminary NO GROWTH AFTER 72 HOURS Resulted 11/20/17 17:45 Urine,Clean Catch Urine Culture - Final Mixed Gram Positive Organism Complete Current Medications Medications (Trade) Dose Ordered Sig/Leslie Route PRN Reason Start Time Stop Time Status Last Admin Dose Admin Acetaminophen (Tylenol) 650 mg Q4H PRN ORAL FEVER (temp>100.5F) 11/22/17 16:00 12/20/17 15:59 Albuterol/ Ipratropium (Albuterol/ Ipratropium) 3 ml Q4H PRN HHN Shortness of Breath 11/22/17 16:00 11/25/17 15:59 11/23/17 20:04 Benzonatate (Tessalon Perles) 100 mg THREE TIMES A DAY ORAL 11/23/17 18:00 12/23/17 17:59 11/23/17 17:11 Dextrose (Dextrose 50%) 25 ml STAT PRN IV Hypoglycemia 11/22/17 16:00 12/20/17 15:59 Dextrose (Dextrose 50%) 50 ml STAT PRN IV Hypoglycemia 11/22/17 16:00 12/20/17 15:59 Heparin Sodium (Porcine) (Heparin 5000 units/ml) 5,000 units EVERY 12 HOURS SUBQ 11/22/17 21:00 12/20/17 20:59 Insulin Aspart (NovoLOG) BEFORE MEALS AND HS SUBQ 11/22/17 16:30 12/20/17 20:59 11/24/17 06:10 Levofloxacin (Levaquin) 500 mg Q24H ORAL 11/23/17 16:00 11/30/17 15:59 11/23/17 17:11 Lorazepam (Ativan 2mg/ml 1ml) 2 mg Q2H PRN IV For Anxiety 11/22/17 16:00 11/27/17 15:59 Morphine Sulfate (Morphine Sulfate) 4 mg Q4H PRN IVP Severe Pain (Pain Scale 7-10) 11/22/17 16:15 11/27/17 20:14 Ondansetron HCl (Zofran) 4 mg Q6H PRN IVP Nausea & Vomiting 11/22/17 16:00 12/20/17 15:59 Polyethylene Glycol (Miralax) 17 gm DAILYPRN PRN ORAL Constipation 11/22/17 16:00 12/20/17 15:59 Promethazine HCl/ Codeine (Phenergan with Codeine) 5 ml Q4H PRN ORAL For Cough 11/22/17 16:00 12/20/17 15:59 11/24/17 00:28 Sodium Chloride 1,000 ml @ 50 mls/hr Q20H IV 11/22/17 16:00 12/20/17 15:59 11/24/17 00:29 Laboratory Tests 11/24/17 04:50: White Blood Count 5.8, Red Blood Count 4.96, Hemoglobin 15.1, Hematocrit 45.0, Mean Corpuscular Volume 91, Mean Corpuscular Hemoglobin 30.6, Mean Corpuscular Hemoglobin Concent 33.7, Red Cell Distribution Width 12.1, Platelet Count 124L, Mean Platelet Volume 10.0, Neutrophils (%) (Auto) 51.8, Lymphocytes (%) (Auto) 35.2, Monocytes (%) (Auto) 10.2H, Eosinophils (%) (Auto) 2.2, Basophils (%) ( Auto) 0.7, Sodium Level 138, Potassium Level 4.3, Chloride Level 105, Carbon Dioxide Level 27, Anion Gap 6, Blood Urea Nitrogen 11, Creatinine 0.8, Estimat Glomerular Filtration Rate , Glucose Level 146H, Calcium Level 9.1 Height (Feet): 5 Height (Inches): 8.00 Weight (Pounds): 199 Objective VIVIENNE Hamilton Nov 24, 2017 07:38
[2017-11-24 08:00] VITALS: BP 133/74
[2017-11-24] MEDS: Benzonatate 100mg Perles ORAL SCH ×3 (08:49→18:00)
[2017-11-24] MEDS: Heparin 5000 units/ml inj SUBQ SCH (08:52)
--- NOTE | 2017-11-24 11:48 | Pulmonology Progress Note ---
Assessment/Plan Problems: (1) Sepsis (2) Altered mental status (3) Bronchitis (4) Bladder cancer (5) Diabetes mellitus type II, uncontrolled Assessment/Plan iv abx, on levofloxacin respiratory treatment antitussives check sputum and other cultures sliding scale, diabetic diet dvt prophylaxis check cultures med/surg dc home with oral abx. Subjective ROS Limited/Unobtainable: No Constitutional: Reports: no symptoms HEENT: Repors: no symptoms Respiratory: Reports: no symptoms Allergies: Coded Allergies: No Known Allergies (Unverified , 11/20/17) Objective Last 24 Hour Vital Signs Date Time Temp Pulse Resp B/P (MAP) Pulse Ox O2 Delivery O2 Flow Rate FiO2 11/24/17 08:00 99.9 71 20 133/74 98 Room Air 99.9 11/24/17 04:00 97.7 70 20 140/73 94 Room Air 97.7 11/24/17 00:00 98.1 72 20 141/76 96 Room Air 98.1 11/23/17 20:11 55 16 99 Room Air 21 11/23/17 20:06 62 16 96 Room Air 21 11/23/17 20:05 95 Room Air 21 11/23/17 20:04 60 16 Room Air 21 11/23/17 20:00 98.0 73 20 146/79 95 Room Air 98.0 11/23/17 16:02 97.9 62 20 136/72 96 Room Air 97.9 11/23/17 12:00 98.0 81 20 125/65 98 98.0 Intake and Output 11/23/17 11/24/17 19:00 07:00 Intake Total 410 ml 670 ml Balance 410 ml 670 ml Intake Oral 360 ml 120 ml IV Total 50 ml 550 ml # Voids 4 2 General Appearance: WD/WN, cachetic HEENT: normocephalic, atraumatic Respiratory/Chest: chest wall non-tender, lungs clear Cardiovascular: normal peripheral pulses, normal rate Abdomen: normal bowel sounds, soft, non tender, no organomegaly Genitourinary: normal external genitalia Extremities: no clubbing Skin: no rash Neurologic/Psychiatric: staffing coordinator II-XII grossly normal Lymphatic: no neck adenopathy Laboratory Tests 11/24/17 04:50: White Blood Count 5.8, Red Blood Count 4.96, Hemoglobin 15.1, Hematocrit 45.0, Mean Corpuscular Volume 91, Mean Corpuscular Hemoglobin 30.6, Mean Corpuscular Hemoglobin Concent 33.7, Red Cell Distribution Width 12.1, Platelet Count 124L, Mean Platelet Volume 10.0, Neutrophils (%) (Auto) 51.8, Lymphocytes (%) (Auto) 35.2, Monocytes (%) (Auto) 10.2H, Eosinophils (%) (Auto) 2.2, Basophils (%) ( Auto) 0.7, Sodium Level 138, Potassium Level 4.3, Chloride Level 105, Carbon Dioxide Level 27, Anion Gap 6, Blood Urea Nitrogen 11, Creatinine 0.8, Estimat Glomerular Filtration Rate , Glucose Level 146H, Calcium Level 9.1 Current Medications Medications (Trade) Dose Ordered Sig/Lesile Route PRN Reason Start Time Stop Time Status Last Admin Dose Admin Acetaminophen (Tylenol) 650 mg Q4H PRN ORAL FEVER (temp>100.5F) 11/22/17 16:00 12/20/17 15:59 Albuterol/ Ipratropium (Albuterol/ Ipratropium) 3 ml Q4H PRN HHN Shortness of Breath 11/22/17 16:00 11/25/17 15:59 11/23/17 20:04 Benzonatate (Tessalon Perles) 100 mg THREE TIMES A DAY ORAL 11/23/17 18:00 12/23/17 17:59 11/24/17 08:49 Dextrose (Dextrose 50%) 25 ml STAT PRN IV Hypoglycemia 11/22/17 16:00 12/20/17 15:59 Dextrose (Dextrose 50%) 50 ml STAT PRN IV Hypoglycemia 11/22/17 16:00 12/20/17 15:59 Heparin Sodium (Porcine) (Heparin 5000 units/ml) 5,000 units EVERY 12 HOURS SUBQ 11/22/17 21:00 12/20/17 20:59 11/24/17 08:52 Insulin Aspart (NovoLOG) BEFORE MEALS AND HS SUBQ 11/22/17 16:30 12/20/17 20:59 11/24/17 11:20 Levofloxacin (Levaquin) 500 mg Q24H ORAL 11/23/17 16:00 11/30/17 15:59 11/23/17 17:11 Lorazepam (Ativan 2mg/ml 1ml) 2 mg Q2H PRN IV For Anxiety 11/22/17 16:00 11/27/17 15:59 Morphine Sulfate (Morphine Sulfate) 4 mg Q4H PRN IVP Severe Pain (Pain Scale 7-10) 11/22/17 16:15 11/27/17 20:14 Ondansetron HCl (Zofran) 4 mg Q6H PRN IVP Nausea & Vomiting 11/22/17 16:00 12/20/17 15:59 Polyethylene Glycol (Miralax) 17 gm DAILYPRN PRN ORAL Constipation 11/22/17 16:00 12/20/17 15:59 Promethazine HCl/ Codeine (Phenergan with Codeine) 5 ml Q4H PRN ORAL For Cough 11/22/17 16:00 12/20/17 15:59 11/24/17 08:49 Sodium Chloride 1,000 ml @ 50 mls/hr Q20H IV 11/22/17 16:00 12/20/17 15:59 11/24/17 00:29 Sabine Mendez MD Nov 24, 2017 11:48
[2017-11-24] MEDS ORDERED: LEVOFLOXACIN500 MG ORAL (11:58)
[2017-11-24 12:00] VITALS: BP 121/62
--- NOTE | 2017-11-24 13:13 | Infectious Diseases Prog Note ---
Assessment/Plan Assessment/Plan ASSESSMENT: The patient is a 72-year-old male with: 1. Status post altered level of consciousness/confusion that resolved 2. No evidence of meningitis/encephalitis. 3. Probably chronic obstructive pulmonary disease exacerbation versus community- acquired pneumonia. The patient's cough has increased recently in the last few days. -CXR: Increased interstitial markings. This may be related to mild pulmonary vascular congestion, interstitial edema, or interstitial pneumonitis. This appears mildly improved compared to the prior chest x-ray. 4. Pyuria. No urinary tract symptoms -u/a wbc tntc.nit -, leuk +2; ucx 40-50k mixed gram positive growth ( not clinically significant) 5. Normal lactic acid. 6. Normal white blood cells. 7. Fever, improving. 8. Rule out bacteremia. -BCx NTD -. History of bladder cancer, status post surgery x3, first time 10 years ago and the patient has also surgery? cystoscopy in June and July 2017. -. History of diabetes. -. History of right knee replacement. PLAN: -. Continue Levaquin abx d#5/ for possible pneumonia/bronchitis. -11/21 SP IV Vando and Cefepime #2 - Monitor CBC, BMP. -. Monitor cultures (blood, sputum). -. Monitor vital signs. -. Monitor chest x-ray. Thank you, Dr. Sandoval and Dr. Mendez for allowing me to participate in the care of this patient. I will follow the patient with you during this hospitalization. Subjective Allergies: Coded Allergies: No Known Allergies (Unverified , 11/20/17) Subjective afebrile in 72 hrs no leukocytosis Bcx NTD at RA cough improving Objective Vital Signs Last 24 Hour Vital Signs Date Time Temp Pulse Resp B/P (MAP) Pulse Ox O2 Delivery O2 Flow Rate FiO2 11/24/17 12:00 98.3 66 20 121/62 97 Room Air 98.3 11/24/17 09:30 97 Room Air 21 11/24/17 09:30 65 16 Room Air 21 11/24/17 08:00 99.9 71 20 133/74 98 Room Air 99.9 11/24/17 04:00 97.7 70 20 140/73 94 Room Air 97.7 11/24/17 00:00 98.1 72 20 141/76 96 Room Air 98.1 11/23/17 20:11 55 16 99 Room Air 21 11/23/17 20:06 62 16 96 Room Air 21 11/23/17 20:05 95 Room Air 21 11/23/17 20:04 60 16 Room Air 21 11/23/17 20:00 98.0 73 20 146/79 95 Room Air 98.0 11/23/17 16:02 97.9 62 20 136/72 96 Room Air 97.9 Height (Feet): 5 Height (Inches): 8.00 Weight (Pounds): 199 Objective HEENT: No pale conjunctivae. No icterus. NECK: No lymphadenopathy. CHEST: Clear. HEART: S1 and S2. ABDOMEN: Soft and nontender. EXTREMITIES: No cyanosis at this time. NEUROLOGIC: Awake and alert. Laboratory Tests Test 11/24/17 04:50 White Blood Count 5.8 K/UL (4.8-10.8) Red Blood Count 4.96 M/UL (4.70-6.10) Hemoglobin 15.1 G/DL (14.2-18.0) Hematocrit 45.0 % (42.0-52.0) Mean Corpuscular Volume 91 FL (80-99) Mean Corpuscular Hemoglobin 30.6 PG (27.0-31.0) Mean Corpuscular Hemoglobin Concent 33.7 G/DL (32.0-36.0) Red Cell Distribution Width 12.1 % (11.6-14.8) Platelet Count 124 K/UL (150-450) L Mean Platelet Volume 10.0 FL (6.5-10.1) Neutrophils (%) (Auto) 51.8 % (45.0-75.0) Lymphocytes (%) (Auto) 35.2 % (20.0-45.0) Monocytes (%) (Auto) 10.2 % (1.0-10.0) H Eosinophils (%) (Auto) 2.2 % (0.0-3.0) Basophils (%) (Auto) 0.7 % (0.0-2.0) Sodium Level 138 MMOL/L (136-145) Potassium Level 4.3 MMOL/L (3.5-5.1) Chloride Level 105 MMOL/L (98-107) Carbon Dioxide Level 27 MMOL/L (21-32) Anion Gap 6 mmol/L (5-15) Blood Urea Nitrogen 11 mg/dL (7-18) Creatinine 0.8 MG/DL (0.55-1.30) Estimat Glomerular Filtration Rate mL/min (>60) Glucose Level 146 MG/DL (74-106) H Calcium Level 9.1 MG/DL (8.5-10.1) Current Medications Medications (Trade) Dose Ordered Sig/Leslie Route PRN Reason Start Time Stop Time Status Last Admin Dose Admin Acetaminophen (Tylenol) 650 mg Q4H PRN ORAL FEVER (temp>100.5F) 11/22/17 16:00 12/20/17 15:59 Albuterol/ Ipratropium (Albuterol/ Ipratropium) 3 ml Q4H PRN HHN Shortness of Breath 11/22/17 16:00 11/25/17 15:59 11/23/17 20:04 Benzonatate (Tessalon Perles) 100 mg THREE TIMES A DAY ORAL 11/23/17 18:00 12/23/17 17:59 11/24/17 08:49 Dextrose (Dextrose 50%) 25 ml STAT PRN IV Hypoglycemia 11/22/17 16:00 12/20/17 15:59 Dextrose (Dextrose 50%) 50 ml STAT PRN IV Hypoglycemia 11/22/17 16:00 12/20/17 15:59 Heparin Sodium (Porcine) (Heparin 5000 units/ml) 5,000 units EVERY 12 HOURS SUBQ 11/22/17 21:00 12/20/17 20:59 11/24/17 08:52 Insulin Aspart (NovoLOG) BEFORE MEALS AND HS SUBQ 11/22/17 16:30 12/20/17 20:59 11/24/17 11:20 Levofloxacin (Levaquin) 500 mg Q24H ORAL 11/23/17 16:00 11/30/17 15:59 11/23/17 17:11 Lorazepam (Ativan 2mg/ml 1ml) 2 mg Q2H PRN IV For Anxiety 11/22/17 16:00 11/27/17 15:59 Morphine Sulfate (Morphine Sulfate) 4 mg Q4H PRN IVP Severe Pain (Pain Scale 7-10) 11/22/17 16:15 11/27/17 20:14 Ondansetron HCl (Zofran) 4 mg Q6H PRN IVP Nausea & Vomiting 11/22/17 16:00 12/20/17 15:59 Polyethylene Glycol (Miralax) 17 gm DAILYPRN PRN ORAL Constipation 11/22/17 16:00 12/20/17 15:59 Promethazine HCl/ Codeine (Phenergan with Codeine) 5 ml Q4H PRN ORAL For Cough 11/22/17 16:00 12/20/17 15:59 11/24/17 08:49 Sodium Chloride 1,000 ml @ 50 mls/hr Q20H IV 11/22/17 16:00 12/20/17 15:59 11/24/17 00:29 Sri Julien M.D. Nov 24, 2017 13:13
[2017-11-24 16:00] VITALS: BP 114/59
[2017-11-24] MEDS: Levofloxacin 500mg tab ORAL SCH (16:16)
--- NOTE | 2017-11-24 16:54 | Diagnostic Imaging Report ---
Indication: Altered mental status Technique: sagittal T1 fast spin echo, axial T1 FLAIR, axial T2 FLAIR, axial T2 FS PROPELLER, axial T2* GRE, axial diffusion weighted images. ADC and exponential ADC maps generated Comparison: Brain CT 11/20/2017 Findings: No abnormal areas of restricted diffusion to suggest acute infarction. No acute hemorrhage or edema. No mass effect nor midline shift. Is mild age-related enlargement of the ventricles and extra axial CSF spaces. Old lacunar infarcts versus prominent perivascular spaces are seen in the bilateral basal ganglia. Scattered deep white matter T2 hyperintensities are noted. Ethmoid and sphenoid sinus disease are noted. The orbits are unremarkable.. The vascular flow voids are preserved. Impression: Mild chronic and age-related changes, as described Negative for acute intracranial bleed, mass effect, or infarct
--- NOTE | 2017-11-24 18:53 | Internal Med Progress Note ---
Subjective Date of Service: Nov 24, 2017 Physician Name Kana Cisse Attending Physician Arnulfo Sandoval MD Current Medications Medications (Trade) Dose Ordered Sig/Leslie Route PRN Reason Start Time Stop Time Status Last Admin Dose Admin Acetaminophen (Tylenol) 650 mg Q4H PRN ORAL FEVER (temp>100.5F) 11/22/17 16:00 12/20/17 15:59 Albuterol/ Ipratropium (Albuterol/ Ipratropium) 3 ml Q4H PRN HHN Shortness of Breath 11/22/17 16:00 11/25/17 15:59 11/23/17 20:04 Benzonatate (Tessalon Perles) 100 mg THREE TIMES A DAY ORAL 11/23/17 18:00 12/23/17 17:59 11/24/17 14:38 Dextrose (Dextrose 50%) 25 ml STAT PRN IV Hypoglycemia 11/22/17 16:00 12/20/17 15:59 Dextrose (Dextrose 50%) 50 ml STAT PRN IV Hypoglycemia 11/22/17 16:00 12/20/17 15:59 Heparin Sodium (Porcine) (Heparin 5000 units/ml) 5,000 units EVERY 12 HOURS SUBQ 11/22/17 21:00 12/20/17 20:59 11/24/17 08:52 Insulin Aspart (NovoLOG) BEFORE MEALS AND HS SUBQ 11/22/17 16:30 12/20/17 20:59 11/24/17 16:20 Levofloxacin (Levaquin) 500 mg Q24H ORAL 11/23/17 16:00 11/30/17 15:59 11/24/17 16:16 Lorazepam (Ativan 2mg/ml 1ml) 2 mg Q2H PRN IV For Anxiety 11/22/17 16:00 11/27/17 15:59 Morphine Sulfate (Morphine Sulfate) 4 mg Q4H PRN IVP Severe Pain (Pain Scale 7-10) 11/22/17 16:15 11/27/17 20:14 Ondansetron HCl (Zofran) 4 mg Q6H PRN IVP Nausea & Vomiting 11/22/17 16:00 12/20/17 15:59 Polyethylene Glycol (Miralax) 17 gm DAILYPRN PRN ORAL Constipation 11/22/17 16:00 7/22/18 15:59 Promethazine HCl/ Codeine (Phenergan with Codeine) 5 ml Q4H PRN ORAL For Cough 11/22/17 16:00 12/20/17 15:59 11/24/17 08:49 Sodium Chloride 1,000 ml @ 50 mls/hr Q20H IV 11/22/17 16:00 12/20/17 15:59 11/24/17 00:29 Allergies: Coded Allergies: No Known Allergies (Unverified , 11/20/17) ROS Limited/Unobtainable: No Constitutional: Reports: no symptoms HEENT: Reports: no symptoms Cardiovascular: Reports: no symptoms Respiratory: Reports: no symptoms Gastrointestinal/Abdominal: Reports: no symptoms Genitourinary: Reports: no symptoms Subjective 72 YO M admitted with altered mental status. Await discharge home. Cover for Int Cole-Dr Sandoval Objective Last Vital Signs Date Time Temp Pulse Resp B/P (MAP) Pulse Ox O2 Delivery O2 Flow Rate FiO2 11/24/17 16:00 98.1 62 20 114/59 95 Room Air 98.1 11/24/17 09:30 21 11/20/17 18:49 2.0 Laboratory Tests Test 11/24/17 04:50 White Blood Count 5.8 K/UL (4.8-10.8) Red Blood Count 4.96 M/UL (4.70-6.10) Hemoglobin 15.1 G/DL (14.2-18.0) Hematocrit 45.0 % (42.0-52.0) Mean Corpuscular Volume 91 FL (80-99) Mean Corpuscular Hemoglobin 30.6 PG (27.0-31.0) Mean Corpuscular Hemoglobin Concent 33.7 G/DL (32.0-36.0) Red Cell Distribution Width 12.1 % (11.6-14.8) Platelet Count 124 K/UL (150-450) L Mean Platelet Volume 10.0 FL (6.5-10.1) Neutrophils (%) (Auto) 51.8 % (45.0-75.0) Lymphocytes (%) (Auto) 35.2 % (20.0-45.0) Monocytes (%) (Auto) 10.2 % (1.0-10.0) H Eosinophils (%) (Auto) 2.2 % (0.0-3.0) Basophils (%) (Auto) 0.7 % (0.0-2.0) Sodium Level 138 MMOL/L (136-145) Potassium Level 4.3 MMOL/L (3.5-5.1) Chloride Level 105 MMOL/L (98-107) Carbon Dioxide Level 27 MMOL/L (21-32) Anion Gap 6 mmol/L (5-15) Blood Urea Nitrogen 11 mg/dL (7-18) Creatinine 0.8 MG/DL (0.55-1.30) Estimat Glomerular Filtration Rate mL/min (>60) Glucose Level 146 MG/DL (74-106) H Calcium Level 9.1 MG/DL (8.5-10.1) Microbiology Date/Time Source Procedure Growth Status 11/24/17 08:50 Sputum Gram Stain - Final Resulted 11/24/17 08:50 Sputum Sputum Culture Pending Resulted Intake and Output 11/23/17 11/24/17 19:00 07:00 Intake Total 410 ml 670 ml Balance 410 ml 670 ml Intake Oral 360 ml 120 ml IV Total 50 ml 550 ml # Voids 4 2 Objective General Appearance: WD/WN, no apparent distress, alert EENT: PERRL/EOMI, normal ENT inspection Neck: non-tender, normal alignment, supple, normal inspection Cardiovascular: normal peripheral pulses, normal rate, regular rhythm, no gallop/murmur, no JVD Respiratory/Chest: chest wall non-tender, lungs clear, normal breath sounds, no respiratory distress, no accessory muscle use Abdomen: normal bowel sounds, non tender, soft, no organomegaly, no mass Extremities: normal range of motion, non-tender Neurologic: plug shaper hand II-XII grossly normal, no motor/sensory deficits Skin: normal pigmentation Assessment/Plan Problem List: (1) Altered mental status Assessment & Plan: Resolving. MRI brain=no acute. Carotid duplex doppler=min stenosis (2) Confusion (3) Diabetes mellitus type II, uncontrolled Assessment & Plan: Continue novolog (4) UTI (urinary tract infection) Assessment & Plan: Continue vanco and levaquin (5) Bladder cancer Assessment & Plan: See urology consult-will need cystoscopy Assessment/Plan D/C home tonight. F/U PCP in [place] Angela MD Nov 24, 2017 18:53
--- NOTE | 2017-11-25 09:52 | Discharge Summary ---
Discharge Summary Discharge Summary _ DATE OF ADMISSION: 11/20/2017 DATE OF DISCHARGE: 11/24/2017 REASON FOR ADMISSION: 72 years old male with history of bladder cancer, diabetes mellitus, presented to emergency department for evaluation due to altered mental status Vital signs revealed fever 102.5 Laboratory workup revealed no leukocytosis, stable hemoglobin and hematocrit. Troponin negative . Pro BNP 133 lactic acid-1.5 CT of the head revealed no acute intracranial pathology Chest x-ray revealed bilateral interstitial edema . EKG revealed normal sinus rhythm, no acute ischemic changes Urinalysis with evidence of pyuria and few bacteria. Patient admitted with diagnosis of altered level of consciousness, possible sepsis, bronchitis, possible UTI, possible community-acquired pneumonia, CHF, COPD, diabetes mellitus CONSULTANTS: superintendent sales Dr. Westbrook pulmonary Dr. Mendez ID specialist Dr. Farias Urologist [facility] COURSE: Patient admitted. Movie Editor closely followed. Supplemental oxygen provided as needed to keep pulse oximetry above 92% Pulmonary toilet provided. Patient started on empiric antibiotics Antitussive provided as needed. DVT prophylaxis provided . Sputum culture was negative Infectious disease specialist closely followed . No evidence of meningitis/encephalitis. Patient was on IV antibiotic, switched to oral to complete Levaquin for 5 days for treatment for possible bronchitis/community-acquired pneumonia. Blood culture were negative. Urine culture revealed mixed gram-positive organism Patient had pyuria, but no urinary complaints. Urologist closely followed. He recommended to monitor patient clinically and complete the course of antibiotic\ Urologist also stated that the patient probably will need renal biopsy and renal imaging which could be done as outpatient. Certified Control Systems Technician closely followed. Per superintendent sales, patient was cardiovascularly stable Echo revealed preserved ejection fraction 60-65%, no evidence of wall motion abnormalities. MRI of the brain revealed no acute intracranial pathology Carotid duplex was essentially unremarkable Blood sugar was managed with sliding scale of insulin. Tighter glycemic control was recommended , follow-up with primary care provider for blood sugar management Altered mental status cleared soon to baseline and probably was multifactorial . Fever resolved. Patient clinically improved and was stable for discharge home with outpatient follow-up with the primary care provider and urologist FINAL DIAGNOSES: Altered mental status Bronchitis Possible community-acquired pneumonia Pyuria History of bladder cancer, status post surgery Diabetes mellitus type 2, out of control Hematuria Proteinuria DISCHARGE MEDICATIONS: See Medication Reconciliation list. DISCHARGE INSTRUCTIONS: Patient was discharged home outpatient follow-up with primary care provider in urologist I have been assigned to dictate discharge summary for this account. I was not involved in the patient's management. Vicki Holbrook NP Nov 25, 2017 09:52
--- NOTE | 2017-11-25 14:49 | Cardiology Report ---
APPROVED REPORT EXAM: Two-dimensional and M-mode echocardiogram with Doppler and color Doppler. INDICATION Left ventricular function M-Mode DIMENSIONS IVSd0.9 (0.7-1.1cm)Left Atrium (MM)3.3 (1.6-4.0cm) LVDd5.6 (3.5-5.6cm)Aortic Root2.6 (2.0-3.7cm) PWd1.1 (0.7-1.1cm)Aortic Cusp Exc.1.6 (1.5-2.0cm) LVDs3.6 (2.5-4.0cm) PWs1.4 cm Normal left ventricular chamber size, systolic function and wall motion. Left ventricular ejection fraction estimated to be 60-65%. No evidence of left ventricular hypertrophy. No evidence of pericardial or pleural effusion. All other cardiac chamber sizes are within normal limits. Focal aortic valve sclerosis with adequate cusp excursion. Thickened mitral valve leaflets with normal excursion. Mild mitral annulus and aortic root calcification. Pulmonic valve not well visualized. Normal tricuspid valve structure. IVC is normal in size and collapsible with respiration. A color flow and spectral Doppler study was performed and revealed: No aortic regurgitation. Trace mitral regurgitation. Mitral diastolic velocities suggest reduced left ventricular relaxation c/w diastolic dysfunction grade 1. No tricuspid regurgitation.
--- NOTE | 2017-11-25 15:32 | Cardiology Report ---
APPROVED REPORT EKG Measurement Heart [id number] Normal sinus rhythm Possible Left atrial enlargement Left anterior fascicular block Septal infarct, age undetermined Abnormal ECG
--- NOTE | 2017-11-25 16:16 | Consultation ---
DATE OF CONSULTATION: 11/24/2017 HEMATOLOGY/ONCOLOGY CONSULTATION CONSULTING PHYSICIAN: Zach Isaacs M.D. REFERRING PHYSICIANS: 1. Arnulfo Sandoval M.D. 2. Kana Cisse M.D. REASON FOR CONSULTATION: Thrombocytopenia. IDENTIFICATION DATA: Dear Dr. Sandoval and Dr. Cisse: The patient is a pleasant 72-year-old male with past medical history significant for constipation, history of bladder cancer, infection a year ago, has a history of surveillance cystoscopy, 00:38 altered mental status, confusion, pyuria, likely related to underlying UTI, noted to be thrombocytopenic. Hematology Service consulted for further evaluation and treatment. PAST MEDICAL HISTORY: 1. Bladder cancer, diagnosed in 2009. 2. Type 2 diabetes mellitus. PAST SURGICAL HISTORY: Bladder cancer, status post resection in 2009 and 2017 and right knee replacement. CURRENT MEDICATIONS: Glimepiride and Tresiba. ALLERGIES: No known drug allergies. SOCIAL HISTORY: and lives with adult daughter. Admits to tobacco use 1/2 pack per day. Admits to occasional alcohol use. No other drug use noted. REVIEW OF SYSTEMS: CONSTITUTIONAL: No fevers, chills, or night sweats. SKIN: No rashes, bumps, or itching. HEENT: No headache or hearing or vision changes. BREASTS: No lumps, pain, or discharge PULMONARY: No cough, sputum, or shortness of breath. GASTROINTESTINAL: No nausea, vomiting, or diarrhea. GENITOURINARY: No dysuria, frequency, or urgency. MUSCULOSKELETAL: No joint swelling, muscle pain, or trauma. PHYSICAL EXAMINATION: VITAL SIGNS: Reviewed. GENERAL: No distress. PULMONARY: Decreased breath sounds. CARDIOVASCULAR: Regular rate. No S3, S4. ABDOMEN: Soft, nontender, nondistended. EXTREMITIES: 1+ edema. LABORATORY AND DIAGNOSTIC DATA: Labs reviewed. WBC of 5.8, hemoglobin 13.1, and platelet count 124,000. Imaging reviewed, brain MRI. Imaging reveals 01:45__ clots in both carotid arteries. Duplex of lower extremities reviewed as well, negative for DVT. Brain MRI, mild chronic age-related changes. 01:56__. ASSESSMENT AND RECOMMENDATIONS: 1. Thrombocytopenia likely secondary to underlying infection versus appears to be chronic. Reviewed the patient's 02:12__ history of platelet count has been ongoing in 100,000 range. We will need likely hepatitis panel and HIV as an outpatient. 2. Bladder cancer, status post resection in 2009 and 2017. Continue to follow Urology, surveillance cystoscopy. 3. Confusion, altered mental status, likely due to UTI, currently improving. Consider discharge 02:36_. 4. UTI, status post antibiotic. 5. Type 2 diabetes, uncontrolled. Currently better, A1c goal less than 8. I appreciate the consultation. Zach Isaacs M.D. DR: LATASHA JOB#: [id number] CC:
--- NOTE | 2017-11-25 19:26 | Consultation ---
History of Present Illness General Date patient seen: Nov 23, 2017 Chief Complaint: Altered Level of Consciousness Reason for Consultation: CHF Present Illness Allergies: Coded Allergies: No Known Allergies (Unverified , 11/20/17) Medication History Scheduled Glimepiride* (Glimepiride*), 4 MG ORAL BEFORE BREAKFAST, (Reported) Insulin Glargine (Lantus), 0 SUBQ BEDTIME, (Reported) Levofloxacin (Levofloxacin*), 500 MG ORAL DAILY Patient History Healthcare decision maker Resuscitation status Full Code Advanced Directive on File Physical Exam Intake and Output 11/24/17 11/25/17 19:00 07:00 Intake Total 1150 ml Balance 1150 ml Intake Oral 850 ml IV Total 300 ml # Voids 7 # Bowel Movements 1 Height (Feet): 5 Height (Inches): 8.00 Weight (Pounds): 199 Jaime Navas M.D. Nov 25, 2017 19:26
--- NOTE | 2017-11-25 19:26 | General Progress Note ---
Subjective Date patient seen: Nov 24, 2017 Allergies: Coded Allergies: No Known Allergies (Unverified , 11/20/17) Objective Intake and Output 11/24/17 11/25/17 19:00 07:00 Intake Total 1150 ml Balance 1150 ml Intake Oral 850 ml IV Total 300 ml # Voids 7 # Bowel Movements 1 Height (Feet): 5 Height (Inches): 8.00 Weight (Pounds): 199 Jaime Navas M.D. Nov 25, 2017 19:26
== END 2017-11-24 18:15 | disposition home or self-care (01) | DRG 194 ==
LOC: EDBD 17:01 → EMR 17:45 → 2E 18:12 → EDBEDREQ 18:21 → 2E 11-22 01:52 → 3E 11-22 14:30
DX: J18.9 Pneumonia, unspecified organism (principal); N39.0 Urinary tract infection, site not specified; R41.82 Altered mental status, unspecified; J40 Bronchitis, not specified as acute or chronic; Z85.51 Personal history of malignant neoplasm of bladder; E11.65 Type 2 diabetes mellitus with hyperglycemia; R31.9 Hematuria, unspecified; Z96.651 Presence of right artificial knee joint; Z79.84 Long term (current) use of oral hypoglycemic drugs; J44.9 Chronic obstructive pulmonary disease, unspecified; I50.9 Heart failure, unspecified; F17.200 Nicotine dependence, unspecified, uncomplicated; D69.6 Thrombocytopenia, unspecified
CPT/HCPCS: 36415; 70450; 70551; 71045; 80048; 80053; 80069; 80202; 81003; 82248; 82550; 82553; 82962; 83605; 83690; 83735; 83880; 84100; 84484; 85007; 85025; 85651; 86140; 87040; 87070; 87086; 87205; 93005; 93306; 93880; 94640; 94664; 94760; 99285; J1815; J7620